=== PATIENT | female | born 1975 | race Caucasian/White ===

== ENCOUNTER 2024-11-11 12:42 | Emergency (ER) | payer MEDICAID, SELFPAY ==
--- OUTSIDE RECORDS SUMMARY | 2024-10-31 12:11 | XMS_ITS | Encounter Summary ---
Author Organization [facility] Address [address], [address] [place] [address] Care Team Providers Care Color Receiver Name Role Phone Charisse Hoffmann APRN - [employer] Primary Care Provi janet Reason for Visit * Treatment Plan and Therapy Plan (Routine) - Pending Review Specialty Diagnoses / Procedures Referred By Kacy porter Referred To Contact Diagnoses Multiple sclerosis (HCC) Louise Mcintosh DO [address] [place] [id number] Phone: tel: fax: Louise Mcintosh DO [address] [place] [address] Phone: tel: fax: Referral ID Status Reason Start Date Expiration Date V isits Requested Visits Authorized [id number] Pending Review 09/29/2024 09/29/2025 1 1 Encounter Details Date Type Department Care Team (Latest Contact Info) Description 10/31/2024 12:11 PM EDT - 10/31/2024 11:59 PM EDT Hospital Encounter [facility] Specialty Clinic ([facility]) [address] [place], [place] [id number] Multiple sclerosis (HCC) (Primary Dx) Discharge Disposition: Home or Self Care Social History Tobacco Use Types Packs/Day Years Used Date Smoking Tobacco: Former Cigarettes Passive Smoke Exposure: Never Smokeless Tobacco: Never Alcohol Use Standard Drinks/Week Comments Yes 0 (1 standard drink = 0.6 oz pur e alcohol) occ Comments Unknown Sex and Gender Information Value Date Recorded Sex Assigned at Not on file Legal Sex Female 1:28 PM EDT Gender Identity Not on file Sexual Orientation Not on file documented as of this encounter Last Filed Vital Signs Vital Sign Reading Time Taken Comments Blood Pressure 125/76 10/31/2024 5:00 PM EDT Pulse 96 10/31/2024 5:00 PM EDT Temperature 35.9 C (96.7 F) 10/31/2024 12:15 PM EDT Respiratory Rate 18 10/31/2024 12:15 PM EDT Oxygen Saturation - - Inhaled Oxygen Concentration - - Weight - - Height - - Body Mass Index - - documented in this encounter Discharge Instructions * Discharge Instructions* Shila Hernandez RN - 10/31/2024 12:59 PM EDT Outpatient Discharge Instructions for IV Therapy [address] [place] [address] You are advised to carry out the following instructions: Diet: As prescribed by your physician. Activity: As prescribed by your physician. Saline Lock: Notify your Physician if your previous IV site becomes,red,sore,swollen,painful, have drainage,or you develop a fever. Other: If you develop hives,rash,itching or trouble breathing, go to the nearest Emergency Room. These could be signs of a allergic reaction to the medication. Keep the IV site covered with a bandage. Keep it clean and dry until healed. Follow up appointment: ANY PROBLEMS OR CONCERNS NOTIFY YOUR PHYSICIAN OR GO TO THE NEAREST EMERGENCY ROOM. documented in this encounter Medications at Time of Discharge predniSONE (DELTASONE) 1 MG tablet Take by mouth daily Pt is unsure of dosage, states she is on a taper dose TRULANCE 3 MG TABS Take 1 tablet by mouth every morning 01/08/2024 Fingolimod HCl 0.5 MG CAPS Take 0.5 mg by mouth 11/03/2023 SEROQUEL 50 MG tablet Take 1 tablet by mouth 3 times daily vitamin B-12 (CYANOCOBALAMIN) 1000 MCG tablet Take 1 tablet by mouth every morning 07/14/2024 DULoxetine (CYMBALTA) 30 MG extended release capsule Take 1 capsule by mouth daily esomeprazole (NEXIUM) 40 MG delayed release capsule Take 1 capsule by mouth 2 times daily 06/02/2024 medroxyPROGESTERo ne (DEPO-PROVERA) 150 MG/ML injection Inject 1 mL into the muscle omeprazole (PRILOSEC) 40 MG delayed release capsule Take 1 capsule by mouth 2 times daily (before meals) 10/15/2023 documented as of this encounter Progress Notes * Shila Hernandez RN - 10/31/2024 5:15 PM EDT Patient stayed for an hour after infusion was complete and had no signs and symptoms of a reaction. documented in this encounter Plan of Treatment Upcoming Encounters Date Type Department Care Team (Late st Contact Info) Description 11/14/2024 10:00 AM EDT Hospital Encounter [facility] [place] [place] [place] [address] [place] [phone] 11/21/2024 3:45 PM EDT Office Visit [facility] Part of [address] [place] [id number] Yadiel Jimenes MD [address] [place] [address], [address] [place] [address] urine leaking, MS 11/29/2024 3:00 PM EDT Office Visit [facility] Neurology [address] [place] [address] Louise Mcintosh DO [address] [place] [address] 2-3 months MS documented as of this encounter Procedures Procedure Name Priority Date/Time Associated Diagnosis Comments CBC WITH AUTO DIFFERENTIAL Routine 10/31/2024 12:30 PM EDT COMPREHENSIVE METABOLIC PANEL Routine 10/31/2024 12:30 PM EDT documented in this encounter Results * (ABNORMAL) Comprehensive Metabolic Panel (10/31/2024 12:30 PM EDT) Sodium 139 136 - 145 mmol/L 10/31/2024 12:30 PM [facility] Potassium 4.2 3.7 - 5.3 mmol/L 10/31/2024 12:30 PM [facility] Chloride 109(H) 98 - 107 mmol/L 10/31/2024 12:30 PM [facility] CO2 17(L) 20 - 31 mmol/L 10/31/2024 12:30 PM [facility] Anion Gap 13 9 - 16 mmol/L 10/31/2024 12:30 PM [facility] Glucose 97 74 - 99 mg/dL 10/31/2024 12:30 PM [facility] BUN 11 6 - 20 mg/dL 10/31/2024 12:30 PM [facility] Creatinine 0.9 0.50 - 0.90 mg/dL 10/31/2024 12:30 PM [facility] Est, Glom Filt Rate 82 >60 mL/min/1.7 3m2 10/31/2024 12:30 PM [facility] Comment: These results are not intended for use in patients <18 years of age. eGFR results are calculated without a race factor using the 2020 CKD-EPI equation. Careful clinical correlation is recommended, particularly when comparing to results calculated using previous equations. The CKD-EPI equation is less accurate in patients with extremes of muscle mass, extra-renal metabolism of creatine, excessive creatine ingestion, or following therapy that affects renal tubular secretion. BUN/Creatinine Ratio 12 9 - 20 10/31/2024 12:30 PM [facility] Calcium 9.3 8.6 - 10.4 mg/dL 10/31/2024 12:30 PM [facility] Total Protein 6.7 6.6 - 8.7 g/dL 10/31/2024 12:30 PM [facility] Albumin 4.2 3.5 - 5.2 g/dL 10/31/2024 12:30 PM EDT [facility] Albumin/Globulin Ratio 1.7 1.0 - 2.5 10/31/2024 12:30 PM EDT [facility] Total Bilirubin 0.4 0.00 - 1.20 mg/dL 10/31/2024 12:30 PM EDT [facility] Alkaline Phosphatase 100 35 - 104 U/L 10/31/2024 12:30 PM EDT [facility] ALT 18 10 - 35 U/L 10/31/2024 12:30 PM EDT [facility] AST 15 10 - 35 U/L 10/31/2024 12:30 PM EDT [facility] 10/31/2024 12:3 0 PM EDT 10/31/2024 12:36 PM EDT us Charisse Hoffmann COVER OPERATOR - [employer] CHEMISTRY ORDERABLE S Final Result [facility] [address] [phone] * (ABNORMAL) CBC with Auto Differential (10/31/2024 12:30 PM EDT) WBC 7.9 3.5 - 11.3 k/uL 10/31/2024 12:30 PM EDT [facility] RBC 5.44(H) 3.95 - 5.11 m/uL 10/31/2024 12:30 PM EDT [facility] Hemoglobin 14.8 11.9 - 15.1 g/dL 10/31/2024 12:30 PM EDT [facility] Hematocrit 43.2 36.3 - 47.1 % 10/31/2024 12:30 PM EDT [facility] MCV 79.4(L) 82.6 - 102.9 fL 10/31/2024 12:30 PM EDT [facility] MCH 27.2 25.2 - 33.5 pg 10/31/2024 12:30 PM EDT [facility] MCHC 34.3 28.4 - 34.8 g/dL 10/31/2024 12:30 PM [facility] RDW 14.0 11.8 - 14.4 % 10/31/2024 12:30 PM [facility] Platelets 363 138 - 453 k/uL 10/31/2024 12:30 PM [facility] MPV 9.9 8.1 - 13.5 fL 10/31/2024 12:30 PM [facility] NRBC Automated 0.0 0.0 per 100 WBC 10/31/2024 12:30 PM [facility] Neutrophils % 70(H) 36 - 65 % 10/31/2024 12:30 PM [facility] Lymphocytes % 20(L) 24 - 43 % 10/31/2024 12:30 PM [facility] Monocytes % 8 3 - 12 % 10/31/2024 12:30 PM [facility] Eosinophils % 1 1 - 4 % 10/31/2024 12:30 PM [facility] Basophils % 0 0 - 2 % 10/31/2024 12:30 PM [facility] Immature Granulocytes % 1(H) 0 % 10/31/2024 12:30 PM [facility] Neutrophils Absolute 5.54 1.50 - 8.10 k/uL 10/31/2024 12:30 PM [facility] Lymphocytes Absolute 1.56 1.10 - 3.70 k/uL 10/31/2024 12:30 PM [facility] Monocytes Absolute 0.63 0.10 - 1.20 k/uL 10/31/2024 12:30 PM [facility] Eosinophils Absolute 0.05 0.00 - 0.44 k/uL 10/31/2024 12:30 PM [facility] Basophils Absolute 0.03 0.00 - 0.20 k/uL 10/31/2024 12:30 PM [facility] Immature Granulocytes Absolute 0.06 0.00 - 0.30 k/uL 10/31/2024 12:30 PM EDT [facility] 10/31/2024 12:3 0 PM EDT 10/31/2024 12:36 PM EDT us Charissera Chamberlainkoki COVER OPERATOR - [employer] HEMATOLOGY ORDERABL ES Final Result [facility] [address] [phone] documented in this encounter Visit Diagnoses Diagnosis Multiple sclerosis (HCC)- Primary Multiple sclerosis documented in this encounter Administered Medications Inactive Administered Medications - up to 3 most recent administrations Medication Order MAR Action Action Date Dose Rate Site 0.9 % sodium chloride infusion 5-250 mL/hr, IntraVENous, PRN, If patient receiving piggyback infusions and maintenance fluids are not ordered OR KVO fluids to protect IV site/ prevent frequent line interruptions/ long duration, Starting on Thu10/31/24 at 1224, For 18 hours, For piggyback infusion, administer at same rate as piggyback for a total of 25 mL. Enter 25 mL into dose field and piggyback rate into rate field of order. If piggyback is infusing at a rate less than 100 mL/hr, enter 25 mL into dose field and 100 mL/hr into rate field of order. For KVO fluids, enter rate of 20 mL/hr or less into rate field of order.Indications:Multiple sclerosis (HCC) New Bag 10/31/2024 12:43 PM EDT 50 mL/hr 50 mL/hr acetaminophen (TYLENOL) tablet 650 mg 650 mg, Oral, ONCE, 1 dose, On Thu10/31/24 at 1245, Maximum dose of acetaminophen is 4000 mg from all sources in 24 hours.Indications:Multiple sclerosis (HCC) Given 10/31/2024 12:38 PM EDT 650 mg diphenhydrAMINE (BENADRYL) injection 25 mg 25 mg, IntraVENous, ONCE, 1 dose, On Thu10/31/24 at 1245Indications:Multiple sclerosis (HCC) Given 10/31/2024 12:39 PM EDT 25 mg methylPREDNISolone sodium succ (SOLU-MEDROL) 125 mg in sterile water 2 mL injection 125 mg, IntraVENous, ONCE, On Thu10/31/24 at 1245, For 1 dose, Reconstitute 125 mg vial with 2 mL diluent.Indications:Multip le sclerosis (HCC) Given 10/31/2024 12:47 PM EDT 125 mg ocrelizumab (OCREVUS) 300 mg in sodium chloride 0.9 % 250 mL IVPB 300 mg, IntraVENous, Once, On Thu10/31/24 at 1245, For 1 dose, Use 0.2 or 0.22 micron in-line filter. Do not administer if patient has an open wound. For 300 mg dose, begin infusion at 30 mL/hr; increase by 30 mL/hr every 30 mins to a max rate of 180 mL/hr. Infusion duration is 2.5 hrs or longer. For 600 mg dose, begin infusion at 40 mL/hr; increase by 40 mL/hr every 30 mins to a max rate of 200 mL/hr. Infusion duration is 3.5 hrs or longer. If the patient has not had a serious reaction during any previous infusions, it may be infused over 2 hrs beginning at 100 mL/hr, after 15 mins increase to 200 mL/hr; at 30 mins increase to 250 mL/hr; at 60 mins increase to 300 mL/hr; after 60 mins continue at 300 mL/hr.Indications:Multiple sclerosis (HCC) Rate/Dose Change 10/31/2024 3:55 PM EDT 180 mL/hr Rate/Dose Change 10/31/2024 3:25 PM EDT 150 mL/ hr Rate/Dose Change 10/31/2024 2:55 PM EDT 120 mL/ hr documented in this encounter Care Teams Color Receiver Relationship Specialty Start Date End Date Charisse Hoffmann APRN - ZANE [address] [place] [address] PCP - General Pediatric Rehabilitation 07/21/24 documented as of this encounter
--- OUTSIDE RECORDS SUMMARY | 2024-11-07 16:15 | XMS_ITS | Encounter Summary ---
Author Organization [facility] tem Address [id number] [address] [place] [address] Care Team Providers Care Transit Department Clerk Name Role Phone Charisse Hoffmann APRN-ZANE Primary Care Provide r Reason for Visit * Reason Comments Nasal Congestion Cough Sore Throat Encounter Details Date Type Department Care Team (Late st Contact Info) Description 11/07/2024 4:15 PM EDT Office Visit [facility] [address] [place] [id number] Charisse Hoffmann APRN-CNP [address] [place], [place] [phone] Acute non-recurrent maxillary sinusitis (Primary Dx) Social History Tobacco Use Types Packs/Day Years Used Date Smoking Tobacco: Former Cigarettes Q uit: 12/14/2000 Smokeless Tobacco: Never Tobacco Cessation:Counseling Given: Not Answered Alcohol Use Standard Drinks/Week Comments Not Currently 0 (1 standard drink = 0.6 oz pur e alcohol) occassional AUDIT-C Answer Date Recorded Q1: How often do you have a drink containing alc ohol? 2-3 times a week 08/29/2019 Q2: How many drinks containi ng alcohol do you have on a typical day when you are drinking? 1 or 2 08/29/2019 Q3: How often do you have si x or more drinks on one occasion? Never 08/29/2019 Overall Financial Resource Strain (CARDIA) Answe r Date Recorded How hard is it for you to pa y for the very basics like food, housing, medical care, and heating? Patient declined 12/12/2023 PHQ-2 Answer Date Recorded Total Score 0 11/07/2024 PRAPARE - Transportation Answer Date Re corded In the past 12 months, has l ack of transportation kept you from medical appointments or from getting medications? No 11/19 In the past 12 months, has l ack of transportation kept you from meetings, work, or from getting things needed for daily living? No 12/12/2023 Housing Instability Answer Date Recorde d Are you worried or concerned that in the next two months you may not have stable housing that you own, rent or stay in as a part of a household? No 12/12/2023 Childcare Answer Date Recorded Childcare Unknown 09/16/2018 Employment Answer Date Recorded Employment Unknown 09/16/2018 Hunger Screening Answer Date Recorded Within the past 12 months we worried whether our food would run out before we got money to buy more. Never True 11/07/2024 Within the past 12 months th e food we bought just didn't last and we didn't have money to get more. 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 Not on file Not on file Not on file documented as of this encounter Last Filed Vital Signs Vital Sign Reading Time Taken Comments Blood Pressure 92/62 11/07/2024 4:03 PM EDT Pulse 101 11/07/2024 4:03 PM EDT Temperature 37.1 C (98.8 F) 11/07/2024 4:03 PM EDT Respiratory Rate 18 11/07/2024 4:03 PM EDT Oxygen Saturation 97% 11/07/2024 4:03 PM EDT Inhaled Oxygen Concentration - - Weight 84.4 kg (186 lb) 11/07/2024 4:03 PM EDT Height - - Body Mass Index 30.25 06/22/2024 9:52 AM EST documented in this encounter Patient Instructions * Attachments The following attachments cannot be sent through Care Everywhere. * Sinusitis in adults (Hungarian) documented in this encounter Progress Notes * Charisse Hoffmann, KR[employer]-PAROLE AGENT - 11/07/2024 4:15 PM EDT Images from the original note were not included. [address] [facility] [id number] SUBJECTIVE: Patient ID: Piper Juarez is a 49 y.o. female. Patient presents to the office for complaints of congestion, sinus pressure, cough for the past week. OTC medication is not helping. Nasal Congestion Associated symptoms include congestion, coughing, sinus pressure and a sore throat. Pertinent negatives include no ear pain, neck pain or shortness of breath. Cough Associated symptoms include postnasal drip and a sore throat. Pertinent negatives include no chest pain, ear pain, fever, rash or shortness of breath. Sore Throat Associated symptoms include congestion and coughing. Pertinent negatives include no abdominal pain,diarrhea, ear pain, neck pain, shortness of breath or vomiting. The following portions of the patient's history were reviewed and updated as appropriate: allergies, current medications, past family history, past medical history, past social history, past surgicalhistory and problem list. REVIEW OF SYSTEMS: Review of Systems Constitutional: Negative for fatigue, fever and unexpected weight change. HENT: Positive for congestion, postnasal drip, sinus pressure, sinus pain and sore throat. Negativefor ear pain. Eyes: Negative for photophobia, pain, discharge and visual disturbance. Respiratory: Positive for cough. Negative for shortness of breath. Cardiovascular: Negative for chest pain, palpitations and leg swelling. Gastrointestinal: Negative for abdominal pain, diarrhea, nausea and vomiting. Endocrine: Negative for polydipsia, polyphagia and polyuria. Genitourinary: Negative for difficulty urinating, frequency, hematuria and urgency. Musculoskeletal: Negative for arthralgias, gait problem, joint swelling and neck pain. Skin: Negative for pallor and rash. Neurological: Negative for dizziness, weakness, light-headedness and numbness. Psychiatric/Behavioral: Negative for sleep disturbance. The patient is not nervous/anxious. PHYSICAL EXAMINATION: Vitals: 11/07/24 1603 BP: 92/62 Pulse: 101 Resp: 18 Temp: 37.1 ??C (98.8 ??F) TempSrc: Tympanic SpO2: 97% Weight: 84.4 kg (186 lb) Physical Exam Constitutional: Appearance: She is well-developed. HENT: Head: Normocephalic and atraumatic. Right Ear: Tympanic membrane, ear canal and external ear normal. Left Ear: Tympanic membrane, ear canal and external ear normal. Nose: Congestion present. Right Sinus: Maxillary sinus tenderness present. Left Sinus: Maxillary sinus tenderness present. Mouth/Throat: Pharynx: Posterior oropharyngeal erythema present. Eyes: Conjunctiva/sclera: Conjunctivae normal. Pupils: Pupils are equal, round, and reactive to light. Cardiovascular: Rate and Rhythm: Normal rate and regular rhythm. Heart sounds: Normal heart sounds. Pulmonary: Effort: Pulmonary effort is normal. Breath sounds: Normal breath sounds. Musculoskeletal: Cervical back: Normal range of motion. Skin: General: Skin is warm and dry. Neurological: Mental Status: She is alert and oriented to person, place, and time. Psychiatric: Mood and Affect: Mood normal. ASSESSMENT/PLAN: Piper was seen today for nasal congestion, cough and sore throat. Diagnoses and all orders for this visit: Acute non-recurrent maxillary sinusitis Other orders - cefDINIR (OMNICEF) 300 mg capsule; Take 1 capsule (300 mg total) by mouth in the morning and 1 capsule (300 mg total) before bedtime. Do all this for 10 days. Follow-up: Cefdinir 300mg bid for ten days Follow up with routine appointment or as needed Patient noted to have elevated BMI and the following intervention(s) were applied: encouragement toexercise. ALONDRA Christie 11/07/24 1619 documented in this encounter Plan of Treatment Not on file documented as of this encounter Visit Diagnoses Diagnosis Acute non-recurrent maxillary sinusitis- Primary documented in this encounter Additional Health Concerns Assessment Noted Time PHQ-9 Depression Total Score: 0 11/08/19 4:07 PM EDT A Body Mass Index follow-up plan has been documented for the patient 11/07/2024 4:19 PM EDT documented as of this encounter Care Teams Transit Department Clerk Relationship Specialty Start Date End Date Charisse Hoffmann APRN-ZANE [address] [place] [address] PCP - General Family Medicine 11/19/17 documented as of this encounter
[2024-11-11 12:45] VITALS: BP 124/97; PULSE 82; O2SAT 97; BMI 29.9
[2024-11-11 12:49] VITALS: O2SAT 97
[2024-11-11 12:50] VITALS: TEMP 36.9
--- NOTE | 2024-11-11 12:54 | XR_ITS ---
[facility] [place] [id number] Patient Name: KENNY MILLS MRN: [id number] date: 1975 Sex: F Assigned Patient Location: ED.MAIN Current Patient Location: ED.MAIN Accession/Order Number: [id number] Exam Date: 11/11/2024 13:54 Report Date: 11/11/2024 13:54 At the request of: DANIS TOUSSAINT MD Procedure: XR chest 1V Single view chest: CLINICAL HISTORY: cough COMPARISON: Chest 02/19/2018 FINDINGS: The heart is normal in size. The lungs are clear. The pulmonary vasculature is normal. Mediastinum and hilar regions are unremarkable. No pleural effusions are seen. Visualized bones are intact. XR/XR chest 1V IMPRESSION: NEGATIVE CHEST. Impression dictated by: Avel Curran Jr., D.O. 11/11/2024 1:54 PM Dictation Location: [place] [address] Electronically authenticated by: [id number] Y Date: 11/11/2024 13:54
--- OUTSIDE RECORDS SUMMARY | 2024-11-11 12:58 | XMS_ITS | Encounter Summary ---
Author Organization [facility] Address [address] [place] [address] Care Team Providers Care Hammer Repairer Name Role Phone Charisse Hoffmann CNP Primary Care Provider [phone] Jaswant Margaret Lincoln OPERATER Unavailable [phone] Source Comments In the event this information is protected by the Federal Confidentiality of Alcohol and Drug AbusePatient Records regulations: The Federal rules restrict any use of the information to criminally investigate or prosecute any alcohol or drug abuse patient.[facility] Encounter Details Date Type Department Care Team (Late st Contact Info) Description 09/28/2020 Patient Msg Neurology [address] [place] [address] Provider, [facility] APPOINTMENT DATE CHANGE WITH MARIANN CUEVA Social History Tobacco Use Types Packs/Day Years Used Date Smoking Tobacco: Former Cigarettes Q uit: 04/20/2009 Smokeless Tobacco: Never Area Deprivation Index Answer Date Jeffy rded National Score (1-100), lower number is lower ri sk Not on file 03/29/2020 State Score (1-10), lower number is lower risk N ot on file 03/29/2020 Data from: https://www.neighborhoodatlas.medicine.[facility].edu/. Last address used for calculation Not on file 03/29/2020 Comments No Sex and Gender Information Value Date Recorded Sex Assigned at Not on file Legal Sex Female 11:01 AM EST Gender Identity Not on file Sexual Orientation Not on file documented as of this encounter Plan of Treatment Not on file documented as of this encounter Visit Diagnoses Not on filedocumented in this encounter Care Teams Hammer Repairer Relationship Specialty Start Date End Date Charisse Hoffmann CNP PCP - General Family Medicine 05/04/19 Margaret Michaud CNP Neurology 05/04/19 documented as of this encounter
--- OUTSIDE RECORDS SUMMARY | 2024-11-11 12:58 | XMS_ITS | Encounter Summary ---
Author Organization [employer] Address [id number] [address] [place] [address] Care Team Providers Care Pay Agent Name Role Phone Charisse Hoffmann HAND ICER-MEDICAL EQUIPMENT REPAIRER Primary Care Provide r Reason for Visit * Reason Onset Date Comments Med Refill 10/04/2018 Encounter Details Date Type Department Care Team (Late st Contact Info) Description 10/04/2018 Refill [facility]rology [address] [facility] [address] [address] [place] [address] Jennifer Paredes, BERNARDO Social History Tobacco Use Types Packs/Day Years Used Date Smoking Tobacco: Former Cigarettes Q uit: 12/14/2000 Smokeless Tobacco: Never Alcohol Use Standard Drinks/Week Comments No 0 (1 standard drink = 0.6 oz pur e alcohol) PHQ-2 Answer Date Recorded PHQ-2 Score 0 04/22/2018 Childcare Answer Date Recorded Childcare Unknown 09/16/2018 Employment Answer Date Recorded Employment Unknown 09/16/2018 Comments No Sex and Gender Information Value Date Recorded Sex Assigned at Not on file Legal Sex Female 11:30 AM EDT Gender Identity Not on file Sexual Orientation Not on file 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 Not on file Not on file documented as of this encounter Plan of Treatment Not on file documented as of this encounter Visit Diagnoses Not on filedocumented in this encounter Additional Health Concerns Infection Onset Date Last Indicated Resolved Time COVID-19 Rule-Out 05/05/2020 04/27/2020 05/05/2020 9:47 AM EST Assessment Noted Time PHQ-9 Depression Total Score: 0 10/05/19 2:00 PM EDT documented as of this encounter Care Teams Pay Agent Relationship Specialty Start Date End Date Charisse Hoffmann APRN-MEDICAL EQUIPMENT REPAIRER [address] [place] [address] PCP - General Family Medicine 11/19/17 documented as of this encounter
--- OUTSIDE RECORDS SUMMARY | 2024-11-11 12:58 | XMS_ITS | Encounter Summary ---
Author Organization [employer] Address [id number] [address] [place] [address] Care Team Providers Care Electrical Instrument Repairer Name Role Phone Charisse Hoffmann HOUSING DIRECTOR-GREEN BUILDING ARCHITECT Primary Care Provide r Reason for Visit * Reason Comments Med Refill Encounter Details Date Type Department Care Team (Late st Contact Info) Description 08/15/2021 Refill [facility] Family Medicine [address] [place] [address] [place] [address] Fatoumata Persaud APRN-CNP [address] [place], [place] [id number] Bladder leak Social History Tobacco Use Types Packs/Day Years Used Date Smoking Tobacco: Former Cigarettes Q uit: 12/14/2000 Smokeless Tobacco: Never Alcohol Use Standard Drinks/Week Comments Not Currently [...] more drinks on one occasion? 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 No / Unsure 07/17/2021 9:40 AM EDT documented as of this encounter Plan of Treatment Not on file documented as of this encounter Visit Diagnoses Diagnosis Bladder leak Unspecified urinary incontinence documented in this encounter Additional Health Concerns Assessment Noted Time PHQ-9 Depression Total Score: 0 06/20/19 22 8:50 AM EST A Body Mass Index follow-up plan has been documented for the patient 04/30/2021 1:47 PM EST documented as of this encounter Care Teams Electrical Instrument Repairer Relationship Specialty Start Date End Date Charisse Hoffmann APRN-GREEN BUILDING ARCHITECT [address] [place] [address] PCP - General Family Medicine 11/19/17 documented as of this encounter
--- OUTSIDE RECORDS SUMMARY | 2024-11-11 12:58 | XMS_ITS | Encounter Summary ---
Author Organization [employer] Address [id number] [address] [place] [address] Care Team Providers Care Binder Selector Name Role Phone Charisse Hoffmann SALESPERSON CORSETS-COMMUNICATIONS EDITOR Primary Care Provide r Encounter Details Date Type Department Care Team (Late st Contact Info) Description 01/19/2023 Telephone [facility] Pulmonary/Sleep Medicine [address] [facility] [address] [place] [address] Ruth Adams MD [address] [place] [address] Social History Tobacco Use Types Packs/Day Years [...] 08/29/2019 PHQ-2 Answer Date Recorded Total Score 9 08/25/2022 Childcare Answer Date Recorded Childcare Unknown 09/16/2018 [...] 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 I let her know that the appointment we have now is when she is due back, and I would check and see if a sooner appt is necessary. Patient states that she is sleeping until 12-1pm everyday. When she awakes she is still tired and feels like she could sleep even longer. She has 2 sleep studies and a follow up scheduled in March. Last seen in our office on 12/30/2022. * Telephone Encounter - Ruth Adams MD - 01/19/2023 1:14 PM EDT I need the results of her sleep study to be able to help her further. She needs the PSG / MSLT scheduled at her habitual sleep and wake time. She needs to keep a sleep diary for two weeks leading up to her testing, as well as UDS, so could have the study as early as two weeks from now if there werecancellations. Would also offer her other labs. * Telephone Encounter - Elida Gomez - 01/19/2023 1:14 PM EDT Called pt to see if wants to try another lab for possible sooner PSG/MSLT appt. Also added to cancel list for PSG /MSLT scheduled at [facility]. documented in this encounter Plan of Treatment Not on file documented as of this encounter Visit Diagnoses Not on filedocumented in this encounter Additional Health Concerns Assessment Noted Time PHQ-9 Depression Total Score: 9 08/26/19 23 1:21 PM EDT A Body Mass Index follow-up plan has been documented for the patient 12/09/2022 1:28 PM EDT documented as of this encounter Care Teams Binder Selector Relationship Specialty Start Date End Date Charisse Hoffmann APRN-ZANE [address] [place] [address] PCP - General Family Medicine 11/19/17 documented as of this encounter
--- OUTSIDE RECORDS SUMMARY | 2024-11-11 12:58 | XMS_ITS | Clinical Summary ---
Author Organization [facility] Address [address] [place], [place] [address] Care Team Providers Care Wheel Braider Name Role Phone Charisse Hoffmann CNP Primary Care Provider [phone]- [phone] Margaret Michaud CANINE SERVICE TEACHER Unavailable [phone] Allergies No known active allergies Medications DULoxetine (CYMBALTA) 30 mg capsule Take 30 mg by mouth once daily. 019 Active QUEtiapine (SEROQUEL) 50 mg tablet Take 50 mg by mouth three times daily. 020 Active cyanocobalami n (VITAMIN B-12) 1,000 mcg tab 023 Active medroxyPROGES TERone (DEPO-PROVERA ) 150 mg/mL injection Inject 150 mg intramuscularly every 3 months. Active esomeprazole (NEXIUM) 40 mg capsule TAKE 1 CAPSULE BY MOUTH 2 TIMES A DAY 180 capsule 025 Active fingolimod (GILENYA) 0.5 mg capsule TAKE ONE CAPSULE BY MOUTH EVERY AFTERNOON 30 capsule 025 Active fingolimod (GILENYA) 0.5 mg capsule Take 1 capsule by mouth every afternoon. 30 capsule 11 024 2024 Discontinued iv contrast (will be provided with radiology test) MRI Brain Inject, intravenously, once for 1 dose.No IV access, insert saline lock prior to beginning of sedation, infusion, injection of imaging exam.Discontinue saline lock post exam. If Pt. has a central line or IVAD, may access for administration according to line specific nursing protocol.Once exam is complete flush line and de-access according to line specific nursing protocol in the MR contrast administration guidelines link 1 each 025 2024 Active Problems Problem Noted Date Diagnosed Date Multiple sclerosis 10/08/2023 Encounters Date Type Department Care Team Description 10/14/2024 Telephone [facility] [address] [id number] Lisa Angel PA-C Appointment (spoke to patient she is going to call back to schedule her mri and follow up) 10/12/2024 Refill [facility] [address] [id number] Rafael Mejía MD Refill Request 08/29/2024 Refill Gastroenterology [address] [id number] Maya Tucker APRN.CANINE SERVICE TEACHER Refill Request 08/26/2024 Travel from Last 3 Months Social History Tobacco Use Types Packs/Day Years Used Date Smoking Tobacco: Former Cigarettes Q uit: 04/20/2009 Smokeless Tobacco: Never Tobacco Cessation:Counseling Given: Not Answered PHQ-2 Answer Date Recorded PHQ-2 score 2 05/23/2024 Area Deprivation Index Answer Date Jeffy rded National Score (1-100), lower number is lower ri sk 92 11/27/2022 State Score (1-10), lower number is lower risk 9 11/27/2022 Data from: https://www.neighborhoodatlas.medicine.[facility]/. Last address used for calculation [address] [place] [address] 11/27/2022 Comments No Sex and Gender Information Value Date Recorded Sex Assigned at Not on file Legal Sex Female 11:01 AM EST Gender Identity Not on file Sexual Orientation Not on file Last Filed Vital Signs Vital Sign Reading Time Taken Comments Blood Pressure 121/75 10/06/2023 1:29 PM EDT Pulse 76 10/06/2023 1:29 PM EDT Temperature - - Respiratory Rate 20 05/10/2019 1:39 PM EST Oxygen Saturation - - Inhaled Oxygen Concentration - - Weight 79.4 kg (175 lb) 10/06/2023 1:29 PM EDT Height 170.7 cm (5' 7.2 ) 10/06/2023 1:29 PM EDT Body Mass Index 27.25 10/06/2023 1:29 PM EDT Plan of Treatment Health Maintenance Due Date Last Done Comments Anxiety Screening 1993 Depression Screening 1993 HIV Screening 1993 Hepatitis C Screening 1993 Hepatitis B Vaccine (1 of 3 - 19+ 3-dose series) 1994 02/29/2004, 01/07/2002, 08/05/1999 Cervical Cancer Screening 1996 CT Colonography 2020 Cologuard (FIT-DNA) 2020 Fecal Occult Blood 2020 Sigmoidoscopy 2020 Mammogram Screening 12/16/2023 12/15/2022, 12/15/2022, 12/12/2021, Additional history exists Colonoscopy 10/14/2024 10/15/2023 Colorectal Cancer Screening 10/14/2024 Influenza Vaccine (#1) 2024 01/16/2022, 2018 Diabetes Screening 10/07/2026 10/08/2023, 0 08/25/2022, 06/25/2022, Additional history exists Lipid Screening 10/07/2028 10/08/2023, 09/19, 06/19/2021, Additional history exists DTaP,Tdap,Td Vaccine (6 - Td or Tdap) 10/23/2031 10/22/2021, 01/06/2014, 07/29/2005, Additional history exists Procedures Procedure Name Priority Date/Time Associated Diagnosis Comments COMPREHENSIVE METABOLIC PANEL Routine 06/25/2022 4:02 PM EST Multiple sclerosis (HCC) from Last 3 Months or Most Recently Relevant to Health Maintenance Results * (ABNORMAL) COMP METABOLIC PANEL (06/25/2022 4:02 PM EST) Protein, Total 6.9 6.3 - 8.0 g/dL 06/25/2022 7:52 PM EST [facility] Albumin 4.4 3.9 - 4.9 g/dL 06/25/2022 7:52 PM EST [facility] Calcium, Total 9.6 8.5 - 10.2 mg/dL 06/25/2022 7:52 PM [facility] Bilirubin, Total 0.4 0.2 - 1.3 mg/dL 06/25/2022 7:52 PM [facility] Alkaline Phosphatase 95 34 - 123 U/L 06/25/2022 7:52 PM [facility] AST 17 13 - 35 U/L 06/25/2022 7:52 PM [facility] ALT 23 7 - 38 U/L 06/25/2022 7:52 PM [facility] Glucose 85 74 - 99 mg/dL 06/25/2022 7:52 PM [facility] Comment: The [place] Diabetes Association (ADA) provides guidance for cutoff values for fasting glucose and random glucose. The ADA defines fasting as no caloric intake for at least 8 hours. Fasting plasma glucose results between 100 to 125 mg/dL indicate increased risk for diabetes (prediabetes). Fasting plasma glucose results greater than or equal to 126 mg/dL meet the criteria for diagnosis of diabetes. In the absence of unequivocal hyperglycemia, results should be confirmed by repeat testing. In a patient with classic symptoms of hyperglycemia or hyperglycemic crisis, random plasma glucose results greater than or equal to 200 mg/dL meet the criteria for diagnosis of diabetes. Reference: Standards of Medical Care in Diabetes 2016, [place] Diabetes Association. Diabetes Care. 2016.39(Suppl 1). BUN 11 7 - 21 mg/dL 06/25/2022 7:52 PM [facility] Creatinine 0.79 0.58 - 0.96 mg/dL 06/25/2022 7:52 PM [facility] Sodium 139 136 - 144 mmol/L 06/25/2022 7:52 PM [facility] Potassium 4.6 3.7 - 5.1 mmol/L 06/25/2022 7:52 PM [facility] Chloride 105 97 - 105 mmol/L 06/25/2022 7:52 PM [facility] CO2 19(L) 22 - 30 mmol/L 06/25/2022 7:52 PM [facility] Anion Gap 15 9 - 18 mmol/L 06/25/2022 7:52 PM [facility] Estimated Glomerular Filtration Rate 93 >=60 mL/min/1.7 3m 06/25/2022 7:52 PM EST [facility] Comment:Estimated Glomerular Filtration Rate (eGFR) is calculated using the 2020 CKD-EPI creatinine equation. This equation utilizes serum creatinine, sex, and age as parameters. The creatinine assay has traceable calibration to isotope dilution- mass spectrometry. Refer to KDIGO guidelines for clinical interpretation. In patients with unstable renal function, e.g. those with acute kidney injury, the eGFR may not accurately reflect actual GFR. Blood BLOOD SPECIMEN / Unknown Venipuncture / Unknown 06/25/2022 4:02 PM EST 06/25/2022 6:09 PM EST us Lisa Angel PA-C LABORATORY Final Result [facility] [address] [phone], from Last 3 Months or Most Recently Relevant to Health Maintenance Insurance [employer] [place] Care Teams Wheel Braider Relationship Specialty Start Date End Date Charisse Hoffmann CNP PCP - General Family Medicine 05/04/19 Margaret Michaud CNP Neurology 05/04/19
--- OUTSIDE RECORDS SUMMARY | 2024-11-11 12:58 | XMS_ITS | Encounter Summary ---
Author Organization [facility] Address [address] [place] [address] Care Team Providers Care Network Intelligence Analyst Name Role Phone Shun Charisse NETWORK INTELLIGENCE ANALYST Primary Care Provider [phone] JaswantMargaret Lincoln NETWORK INTELLIGENCE ANALYST Unavailable [phone] Source Comments In the event this information is protected by the Federal Confidentiality of Alcohol and Drug AbusePatient Records regulations: The Federal rules restrict any use of the information to criminally investigate or prosecute any alcohol or drug abuse patient.[facility] Encounter Details Date Type Department Care Team (Late st Contact Info) Description 01/21/2024 Patient Msg Gastroenterology [address] [address] Maya Tucker APRN.NETWORK INTELLIGENCE ANALYST [address] [place] [address] virtual visit follow up Social History Tobacco Use Types Packs/Day Years Used Date Smoking Tobacco: Former Cigarettes Q uit: 04/20/2009 Smokeless Tobacco: Never PHQ-2 Answer Date Recorded PHQ-2 score 0 10/05/2023 Area Deprivation Index Answer Date Jeffy rded National Score (1-100), lower number is lower ri sk 92 11/27/2022 State Score (1-10), lower number is lower risk 9 11/27/2022 Data from: https://www.neighborhoodatlas.medicine.[facility].edu/. Last address used for calculation [address] [facility] 11/27/2022 Comments No Sex and Gender Information Value Date Recorded Sex Assigned at Not on file Legal Sex Female 11:01 AM EST Gender Identity Not on file Sexual Orientation Not on file documented as of this encounter Plan of Treatment Not on file documented as of this encounter Visit Diagnoses Not on filedocumented in this encounter Care Teams Network Intelligence Analyst Relationship Specialty Start Date End Date Charisse Hoffmann CNP PCP - General Family Medicine 05/04/19 Margaret Michaud CNP Neurology 05/04/19 documented as of this encounter
--- OUTSIDE RECORDS SUMMARY | 2024-11-11 12:58 | XMS_ITS | Encounter Summary ---
Author Organization [employer] Address [id number] [address] [place] [address] Care Team Providers Care Sales Floor Manager Name Role Phone Charisse Hoffmann Primary Care Provide r Encounter Details Date Type Department Care Team (Late st Contact Info) Description 06/01/2020 Telephone [facility] [address] [place] [address] Charisse Hoffmann APRN-CNP [address] [place], [place] [id number] Social History Tobacco Use Types Packs/Day Years [...] 08/29/2019 PHQ-2 Answer Date Recorded Total Score 11 03/01/2020 Childcare Answer Date Recorded Childcare Unknown 09/16/2018 [...] 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 No / Unsure 05/25/2020 6:02 PM EST documented as of this encounter Miscellaneous Notes * Telephone Encounter - Michelle Serrano - 06/01/2020 1:13 PM EST Patient called, she called the pharmacy to see if she can get the covid shot. She is concerned because her daughter just found out that she has Covid. The pharmacy told her to call her PCP to get a letter of exception because she has MS. She wants toknow if you will write that letter * Telephone Encounter - ALONDRA Christie - 06/01/2020 1:13 PM EST That's fine documented in this encounter Plan of Treatment Not on file documented as of this encounter Visit Diagnoses Not on filedocumented in this encounter Additional Health Concerns Assessment Noted Time PHQ-9 Depression Total Score: 020 2:00 PM EST A Body Mass Index follow-up plan has been documented for the patient 03/01/2020 3:26 PM EST documented as of this encounter Care Teams Sales Floor Manager Relationship Specialty Start Date End Date Charisse Hoffmann APRN-CNP [address] [place] [address] PCP - General Family Medicine 11/19/17 documented as of this encounter
--- OUTSIDE RECORDS SUMMARY | 2024-11-11 12:58 | XMS_ITS | Encounter Summary ---
Author Organization [employer] Address [id number] [address] [place] [address] Care Team Providers Care Knit Goods Cutter Hand Name Role Phone Charisse Hoffmann Primary Care Provide r Encounter Details Date Type Department Care Team (Late st Contact Info) Description 12/22/2023 Orders Only [facility] [address] [place] [address] Charisse Hoffmann APRN-CNP [address] [place], [place] [phone] Abnormal mammogram of right breast (Primary Dx) Social History Tobacco Use Types [...] 12/12/2023 PHQ-2 Answer Date Recorded Total Score 9 08/25/2022 PRAPARE - Transportation Answer Date Re corded [...] got money to buy more. Never True 12/18/2023 Within the past 12 months th e food we bought just didn't last and we didn't have money to get more. 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 on file Not on file documented as of this encounter Plan of Treatment Scheduled Orders Name Type Priority Associated Diagnoses Orde r Schedule Mammography diagnostic bilateral with CAD Imaging Routine Abnormal mammogram of right breast Expected: 12/22/2023, Expires: 12/21/2024 documented as of this encounter Visit Diagnoses Diagnosis Abnormal mammogram of right breast- Primary documented in this encounter Additional Health Concerns Assessment Noted Time PHQ-9 Depression Total Score: 9 08/26/19 23 1:21 PM EDT A Body Mass Index follow-up plan has been documented for the patient 12/14/2023 9:25 AM EDT documented as of this encounter Care Teams Knit Goods Cutter Hand Relationship Specialty Start Date End Date Charisse Hoffmann APRN-[employer]ER [address] [place] [place] [address] PCP - General Family Medicine 11/19/17 documented as of this encounter
--- OUTSIDE RECORDS SUMMARY | 2024-11-11 12:58 | XMS_ITS | Encounter Summary ---
Author Organization Address [address] [place] [address] Care Team Providers Care Pillowcase Maker Name Role Phone Charisse Hoffmann CNP Primary Care Provider [phone] Jaswant Margaret Lincoln TUBE HANDLER Unavailable [phone] Source Comments In the event this information is protected by the Federal Confidentiality of Alcohol and Drug AbusePatient Records regulations: The Federal rules restrict any use of the information to criminally investigate or prosecute any alcohol or drug abuse patient. Encounter Details Date Type Department Care Team (Late st Contact Info) Description 05/08/2024 Patient Msg Urology [address] [place] [address] Nohelia Burns MD [address] [place] [address] Appointment Request Social History Tobacco Use Types Packs/Day Years Used Date Smoking Tobacco: Former Cigarettes Q uit: 04/20/2009 Smokeless Tobacco: Never PHQ-2 Answer Date Recorded PHQ-2 score 0 04/07/2024 Area Deprivation Index Answer Date Jeffy rded National Score (1-100), lower number is lower ri sk 92 11/27/2022 State Score (1-10), lower number is lower risk 9 11/27/2022 Data from: https://www.neighborhoodatlas.medicine.[facility].edu/. Last address used for calculation [address] [place] [address] 11/27/2022 Comments No Sex and Gender Information Value Date Recorded Sex Assigned at Not on file Legal Sex Female 11:01 AM EST Gender Identity Not on file Sexual Orientation Not on file documented as of this encounter Plan of Treatment Not on file documented as of this encounter Visit Diagnoses Not on filedocumented in this encounter Care Teams Pillowcase Maker Relationship Specialty Start Date End Date Charisse Hoffmann CNP PCP - General Family Medicine 05/04/19 Margaret Michaud CNP Neurology 05/04/19 documented as of this encounter
--- OUTSIDE RECORDS SUMMARY | 2024-11-11 12:58 | XMS_ITS | Encounter Summary ---
Author Organization [employer] [facility] Address [id number] [address] [place] [address] Care Team Providers Care Lead Trainer Name Role Phone Charisse Hoffmann SCIENCE TEACHER-BANKING AND FINANCE INSTRUCTOR Primary Care Provide r Encounter Details Date Type Department Care Team (Late st Contact Info) Description 07/23/2020 Telephone [facility] [address] [facility] [address] [place] [address] Mile Martinez, GRANT Social History Tobacco Use Types Packs/Day Years [...] 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 Patient states the medications prescribed were not helping her so she stopped them. She hasn't beentaking anything for symptoms for about 1 to 2 months. She states she is having nausea and and some heartburn symptoms. Patient states she is watching herdiet and following guidelines without relief. Please advise documented in this encounter Plan of Treatment Not on file documented as of this encounter Visit Diagnoses Not on filedocumented in this encounter Additional Health Concerns Assessment Noted Time PHQ-9 Depression Total Score: 11 020 2:00 PM EST A Body Mass Index follow-up plan has been documented for the patient 03/01/2020 3:26 PM EST documented as of this encounter Care Teams Lead Trainer Relationship Specialty Start Date End Date Charisse Hoffmann APRN-ZANE [address] [place] [address] PCP - General Family Medicine 11/19/17 documented as of this encounter
--- OUTSIDE RECORDS SUMMARY | 2024-11-11 12:58 | XMS_ITS | Encounter Summary ---
Author Organization [employer] Address [id number] [address] 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 No / Unsure 10/02/2021 2:43 PM EDT documented as of this encounter Plan of Treatment Not on file documented as of this encounter Visit Diagnoses Diagnosis Stress incontinence of urine documented in this encounter Additional Health Concerns Assessment Noted Time PHQ-9 Depression Total Score: 0 06/20/19 22 8:50 AM EST A Body Mass Index follow-up plan has been documented for the patient 10/02/2021 3:22 PM EDT documented as of this encounter Care Teams Invasive Physician Relationship Specialty Start Date End Date Charisse Hoffmann APRN-FASHION INTERN [address] [place] [address] PCP - General Family Medicine 11/19/17 documented as of this encounter
--- OUTSIDE RECORDS SUMMARY | 2024-11-11 12:58 | XMS_ITS | Encounter Summary ---
Author Organization [email or web address] Address [id number] [address] 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 Not on file Not on file documented as of this encounter Plan of Treatment Not on file documented as of this encounter Procedures Procedure Name Priority Date/Time Associated Diagnosis Comments AMB REFERRAL TO ORTHOPEDIC SURGERY Routine 12/29/2023 Acute pain of left knee documented in this encounter Results * Ambulatory referral to Orthopedic Surgery (12/29/2023) us Charisse Hoffmann ENDODONTIC ASSISTANT-PAPER SALES REPRESENTATIVE OUTPATIENT REFERRAL O RDERABLES Final Result MANUALLY TRANSCRIBED RESULTS documented in this encounter Visit Diagnoses Diagnosis Acute pain of left knee documented in this encounter Additional Health Concerns Assessment Noted Time PHQ-9 Depression Total Score: 9 08/26/19 23 1:21 PM EDT A Body Mass Index follow-up plan has been documented for the patient 12/14/2023 9:25 AM EDT documented as of this encounter Care Teams Loading Machine Operator Relationship Specialty Start Date End Date Charisse Hoffmann APRN-PAPER SALES REPRESENTATIVE [address] [place] [address] PCP - General Family Medicine 11/19/17 documented as of this encounter
--- OUTSIDE RECORDS SUMMARY | 2024-11-11 12:58 | XMS_ITS | Encounter Summary ---
Author Organization [facility] Address [address] [place] [address] Care Team Providers Care Piano Case And Bench Assembler Name Role Phone Charisse Hoffmann CNP Primary Care Provider +1- [phone] Jaswant Margaret Lincoln AQUATIC PERFORMER Unavailable [phone] Source Comments In the event this information is protected by the Federal Confidentiality of Alcohol and Drug AbusePatient Records regulations: The Federal rules restrict any use of the information to criminally investigate or prosecute any alcohol or drug abuse patient.[facility] Encounter Details Date Type Department Care Team (Late st Contact Info) Description 05/04/2021 Patient [facility] [address] [address] Provider, Ccf Please call to re-schedule Social History Tobacco Use Types Packs/Day Years Used Date Smoking Tobacco: Former Cigarettes Q uit: 04/20/2009 Smokeless Tobacco: Never Area Deprivation Index Answer Date Jeffy rded National Score (1-100), lower number is lower ri sk Not on file 03/29/2020 State Score (1-10), lower number is lower risk N ot on file 03/29/2020 Data from: https://www.neighborhoodatlas.medicine.[place].edu/. Last address used for calculation Not on file 03/29/2020 Comments No Sex and Gender Information Value Date Recorded Sex Assigned at Not on file Legal Sex Female 11:01 AM EST Gender Identity Not on file Sexual Orientation Not on file COVID-19 Exposure Response Date Recorded In the last month, have you been in contact with someone who was confirmed or suspected to have Coronavirus / COVID-19? No / Unsure 04/09/2021 3:24 PM EST documented as of this encounter Plan of Treatment Not on file documented as of this encounter Visit Diagnoses Not on filedocumented in this encounter Care Teams Piano Case And Bench Assembler Relationship Specialty Start Date End Date Charisse Hoffmann CNP PCP - General Family Medicine 05/04/19 Margaret Michaud CNP Neurology 05/04/19 documented as of this encounter
--- OUTSIDE RECORDS SUMMARY | 2024-11-11 12:58 | XMS_ITS | Encounter Summary ---
Author Organization [facility] Address [facility] [place] [address] Care Team Providers Care Emt Intermediate Name Role Phone Charisse Hoffmann CNP Primary Care Provider +1- [phone] JaswantMargaret Lincoln LEAD RADIATION THERAPIST Unavailable Source Comments In the event this information is protected by the Federal Confidentiality of Alcohol and Drug AbusePatient Records regulations: The Federal rules restrict any use of the information to criminally investigate or prosecute any alcohol or drug abuse patient.[facility] Reason for Referral * MRI/CT (Routine) - New Request Specialty Diagnoses / Procedures Referred By Kacy porter Referred To Contact [facility] Diagnoses Multiple sclerosis (HCC) Procedures MRI BRAIN WO/W IVCON MRI BRAIN BRAIN STEM W/O W/CONTRAST MATERIAL Lisa Angel PA-C [address] [place] [address] Phone: tel: fax: [place] [phone] Referral ID Status Reason Start Date Expiration Date Visits Requested Visits Authorized [id number] New Request Auto-Generat ed Referral 10/13/2024 11/12/2025 1 1 Reason for Visit * Reason Comments Refill Request Encounter Details Date Type Department Care Team (Late st Contact Info) Description 10/12/2024 Refill [facility] [address] [address] Rafael Mejía MD [address] [place] [address] Refill Request Social History Tobacco Use Types Packs/Day Years Used Date Smoking Tobacco: Former Cigarettes Q uit: 04/20/2009 Smokeless Tobacco: Never PHQ-2 Answer Date Recorded PHQ-2 score 2 05/23/2024 Area Deprivation Index Answer Date Jeffy rded National Score (1-100), lower number is lower ri sk 92 11/27/2022 State Score (1-10), lower number is lower risk 9 11/27/2022 Data from: https://www.neighborhoodatlas.medicine.[facility].edu/. Last address used for calculation [address] [place] [address] 11/27/2022 Comments No Sex and Gender Information Value Date Recorded Sex Assigned at Not on file Legal Sex Female 11:01 AM EST Gender Identity Not on file Sexual Orientation Not on file documented as of this encounter Miscellaneous Notes * Telephone Encounter - Lisa Angel PA-C - 10/13/2024 4:30 PM EDT The following approved medication requests have been transmitted electronically. Requested Prescriptions Signed Prescriptions Disp Refills fingolimod (GILENYA) 0.5 mg capsule 30 capsule 0 Sig: TAKE ONE CAPSULE BY MOUTH EVERY AFTERNOON Authorizing Provider: LISA ANGEL iv contrast (will be provided with radiology test) 1 each 0 Sig: MRI Brain Inject, intravenously, once for 1 dose.No IV access, insert saline lock prior to beginning of sedation, infusion, injection of imaging exam.Discontinue saline lock post exam. If Pt. has a central line or IVAD, may access for administration according to line specific nursing protocol.Once exam is complete flush line and de-access according to line specific nursing protocol in the [facility] administration guidelines link Authorizing Provider: LISA ANGEL PA-C * Telephone Encounter - Russellchey Char Francine - 10/13/2024 11:30 AM EDT Source : electronic from pharmacy requesting refill. Delivery : e-script Requested Prescriptions Pending Prescriptions Disp Refills fingolimod (GILENYA) 0.5 mg capsule [Pharmacy Med Name: FINGOLIMOD 0.5 MG CAPSULE] 30 capsule 0 Sig: TAKE ONE CAPSULE BY MOUTH EVERY AFTERNOON DX : Patient last seen: 10/06/2023 Next Appointment : None Francine Pardo documented in this encounter Plan of Treatment Scheduled Orders Name Type Priority Associated Diagnoses Orde r Schedule COMPLETE BLOOD COUNT AND DIFFERENTIAL Lab Routine Multiple sclerosis (HCC) Expected: 10/13/2024, Expires: 01/12/2025 HEPATIC FUNCTION PNL Lab Routine Multiple sclerosis (HCC) Expected: 10/13/2024, Expires: 01/12/2025 MRI BRAIN WO/W IVCON Radiology Routine Multiple sclerosis (HCC) 1 Occurrences starting 10/13/2024 until 11/12/2025 documented as of this encounter Visit Diagnoses Diagnosis Multiple sclerosis (HCC)- Primary Multiple sclerosis documented in this encounter Care Teams Emt Intermediate Relationship Specialty Start Date End Date Charisse Hoffmann CNP PCP - General Family Medicine 05/04/19 Margaret Michaud CNP Neurology 05/04/19 documented as of this encounter
--- OUTSIDE RECORDS SUMMARY | 2024-11-11 12:58 | XMS_ITS | Encounter Summary ---
Author Organization [facility] Address [address] [place] [address] Care Team Providers Care Supervisor Bleach Plant Name Role Phone Shun Charisse DEGROOT Primary Care Provider [phone]- [phone] Radha Michauda Lincoln PROCESS TRAINER Unavailable [phone] Source Comments In the event this information is protected by the Federal Confidentiality of Alcohol and Drug AbusePatient Records regulations: The Federal rules restrict any use of the information to criminally investigate or prosecute any alcohol or drug abuse patient.[facility] Reason for Visit * Reason Comments Refill Request Encounter Details Date Type Department Care Team (Late st Contact Info) Description 11/02/2023 [facility] [address] [address] [place] [address] [place] [address] [place] [address] Refill Request Social History Tobacco Use Types Packs/Day Years Used Date Smoking Tobacco: Former Cigarettes Q uit: 04/20/2009 Smokeless Tobacco: Never PHQ-2 Answer Date Recorded PHQ-2 score 2 05/23/2024 Area Deprivation Index Answer Date Jeffy rded National Score (1-100), lower number is lower ri sk 92 11/27/2022 State Score (1-10), lower number is lower risk 9 11/27/2022 Data from: https://www.neighborhoodatlas.medicine.[facility]/. Last address used for calculation [address] 11/27/2022 Comments No Sex and Gender Information Value Date Recorded Sex Assigned at Not on file Legal Sex Female 11:01 AM EST Gender Identity Not on file Sexual Orientation Not on file documented as of this encounter Miscellaneous Notes * Telephone Encounter - Lisa Angel PA-C - 11/03/2023 3:56 PM EDT The following approved medication requests have been transmitted electronically. Requested Prescriptions Signed Prescriptions Disp Refills fingolimod (GILENYA) 0.5 mg capsule 30 capsule 11 Sig: Take 1 capsule by mouth every afternoon. Authorizing Provider: YAMILA ESPINO Ordering User: LISA ANGEL PA-C * Telephone Encounter - Francine Dietrich - 11/02/2023 10:15 AM EDT Source : electronic from pharmacy requesting refill. Delivery : e-script Requested Prescriptions Pending Prescriptions Disp Refills fingolimod (GILENYA) 0.5 mg capsule [Pharmacy Med Name: FINGOLIMOD 0.5 MG CAPSULE] 30 capsule 11 Sig: Take 1 capsule by mouth every afternoon. DX : Patient last seen: 10/06/2023 Next Appointment : 04/05/2024 Francine Pardo documented in this encounter Plan of Treatment Not on file documented as of this encounter Visit Diagnoses Not on filedocumented in this encounter Care Teams Supervisor Bleach Plant Relationship Specialty Start Date End Date Charisse Hoffmann CNP PCP - General Family Medicine 05/04/19 Margaret Michaud CNP Neurology 05/04/19 documented as of this encounter
--- OUTSIDE RECORDS SUMMARY | 2024-11-11 12:58 | XMS_ITS | Encounter Summary ---
Author Organization [facility] Address [address] [place] [address] Care Team Providers Care Heater Tender Name Role Phone Charisse Hoffmann CNP Primary Care Provider +1- [phone] Jaswant Margaret Lincoln SALESPERSON SEWING MACHINES Unavailable Source Comments In the event this information is protected by the Federal Confidentiality of Alcohol and Drug AbusePatient Records regulations: The Federal rules restrict any use of the information to criminally investigate or prosecute any alcohol or drug abuse patient.[facility] Encounter Details Date Type Department Care Team (Late st Contact Info) Description 06/23/2022 [place] [address] Provider, Ccf MRI Screening Questionnaire Completion Required Social History Tobacco Use Types Packs/Day Years Used Date Smoking Tobacco: Former Cigarettes Q uit: 04/20/2009 Smokeless Tobacco: Never PHQ-2 Answer Date Recorded PHQ-2 score 2 07/29/2021 Area Deprivation Index Answer Date Jeffy rded National Score (1-100), lower number is lower ri sk 97 06/25/2022 State Score (1-10), lower number is lower risk N ot on file 06/25/2022 Data from: https://www.neighborhoodatlas.medicine.[facility].edu/. Last address used for calculation [address] [facility] 06/25/2022 Comments No Sex and Gender Information Value Date Recorded Sex Assigned at Not on file Legal Sex Female 11:01 AM EST Gender Identity Not on file Sexual Orientation Not on file documented as of this encounter Plan of Treatment Not on file documented as of this encounter Visit Diagnoses Not on filedocumented in this encounter Care Teams Heater Tender Relationship Specialty Start Date End Date Charisse Hoffmann CNP PCP - General Family Medicine 05/04/19 Margaret Michaud CNP Neurology 05/04/19 documented as of this encounter
--- OUTSIDE RECORDS SUMMARY | 2024-11-11 12:59 | XMS_ITS | Encounter Summary ---
Author Organization [facility] Sys [facility] Address [id number] [address] [place] [address] Care Team Providers Care Ux Specialist Name Role Phone Charisse Hoffmann PIN CLEANER-VAMP LINER Primary Care Provide r Encounter Details Date Type Department Care Team (Late st Contact Info) Description 03/06/2020 Orders Only [facility] [address] [facility]. 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 Unable to assess 03/05/2020 1:50 PM EST documented as of this encounter [...] documented as of this encounter Care Teams Ux Specialist Relationship Specialty Start Date End Date Charisse Hoffmann APRN-VAMP LINER [address] [place] [address] PCP - General Family Medicine 11/19/17 documented as of this encounter
--- OUTSIDE RECORDS SUMMARY | 2024-11-11 12:59 | XMS_ITS | Encounter Summary ---
Author Organization [facility] Address [address] [facility], [address] [place] [address] Care Team Providers Care Scooping Machine Tender Name Role Phone Charisse Hoffmann APRN - VICE PRESIDENT RISK MANAGEMENT Primary Care Provi janet Encounter Details Date Type Department Care Team (Late st Contact Info) Description 10/27/[address] [facility] Specialty Clinic ([facility]) [address] [place] [phone] Louise Mcintosh V, DO [address] [phone] Social History Tobacco Use Types Packs/Day Years [...] as of this encounter Plan of Treatment Upcoming Encounters Date Type Department Care Team (Late st Contact Info) Description 11/14/2024 10:00 AM EDT Hospital Encounter [facility] Specialty Clinic ([facility]) [address] [place] [phone] 11/21/2024 3:45 PM EDT Office Visit [facility] UR[facility] Part of [address] [place] [address] Yadiel Jimenes MD [address] [facility], [address] [place], [place] [phone] urine leaking, MS 11/29/2024 3:00 PM EDT Office Visit [facility] [address] [place] [address] Louise Mcintosh DO [address] [place], [place] [phone] 2-3 months MS documented as of this encounter Visit Diagnoses Not on filedocumented in this encounter Care Teams Scooping Machine Tender Relationship Specialty Start Date End Date Charisse Hoffmann APRN - VICE PRESIDENT RISK MANAGEMENT [address] [place], [place] [phone] PCP - General Pediatric Rehabilitation 07/21/24 documented as of this encounter
--- OUTSIDE RECORDS SUMMARY | 2024-11-11 12:59 | XMS_ITS | Encounter Summary ---
Author Organization [facility] Address [id number] [address] [place] [address] Care Team Providers Care Assistant Director Of Plant Operations Name Role Phone Charisse Hoffmann APRN-FIRE OBSERVER Primary Care Provide r Reason for Visit * Reason Comments Med Refill Encounter Details Date Type Department Care Team (Late st Contact Info) Description 07/31/2024 Refill [facility] - Medical Oncology [address] [place] [address] Juan Alberto Pinto MD [address] [facility] [address] [place] [address] Social History Tobacco Use Types Packs/Day Years [...] got money to buy more. Never True 06/22/2024 Within the past 12 months th e food we bought just didn't last and we didn't have money to get more. 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
--- OUTSIDE RECORDS SUMMARY | 2024-11-11 12:59 | XMS_ITS | Encounter Summary ---
Author Organization [facility] Address [address] [facility], [address] [place] [address] Care Team Providers Care Real Estate Specialist Name Role Phone Charisse Hoffmann APRN - SEWING MACHINE REPAIRER Primary Care Provi janet Encounter Details Date Type Department Care Team (Late st Contact Info) Description 09/29/2024 Telephone [facility] Specialty Clinic ([facility] [address] [place] [address] [phone] Shila Hernandez RN Social History Tobacco Use Types Packs/Day Years [...] Encounters Date Type Department Care Team (Late Contact Info) Description 11/14/2024 10:00 AM EDT Hospital Encounter [facility] Specialty Clinic ([facility]) [address] [place] [phone] 11/21/2024 3:45 PM EDT Office Visit [facility] UROLOGY Part of [address] [place] [address] Yadiel Jimenes MD [address] [place] [address], [address] [place] [address] urine leaking, [place] 11/29/2024 3:00 PM EDT Office Visit [facility] Neurology [address] [place] [address] Louise Mcintosh DO [address] [place] [address] 2-3 months MS documented as of this encounter Visit Diagnoses Not on filedocumented in this encounter Care Teams Real Estate Specialist Relationship Specialty Start Date End Date Charsise Hoffmann APRN - SEWING MACHINE REPAIRER [address] [place] [address] PCP - General Pediatric Rehabilitation 07/21/24 documented as of this encounter
--- OUTSIDE RECORDS SUMMARY | 2024-11-11 12:59 | XMS_ITS | Encounter Summary ---
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 No / Unsure 05/03/2020 1:53 PM EST documented as of this encounter Miscellaneous Notes * Telephone Encounter - ALONDRA Christie - 04/30/2020 12:34 PM EST covid test negative * Telephone Encounter - Shanon Mccarthy CMA - 04/30/2020 12:34 PM EST Patient notified of test results and verbalizes understanding. documented in this encounter Plan of Treatment [...] documented as of this encounter Care Teams Customs Examiner Relationship Specialty Start Date End Date Charisse Hoffmann APRN-CNP [address] [place] [address] PCP - General Family Medicine 11/19/17 documented as of this encounter
--- OUTSIDE RECORDS SUMMARY | 2024-11-11 12:59 | XMS_ITS | Encounter Summary ---
Author Organization [employer] Address [id number] [address] 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 on file Not on file documented as of this encounter Plan of Treatment Not on file documented as of this encounter Visit Diagnoses Not on filedocumented in this encounter Additional Health Concerns Assessment Noted Time PHQ-9 Depression Total Score: 0 11/08/19 25 4:07 PM EDT A Body Mass Index follow-up plan has been documented for the patient 11/07/2024 4:19 PM EDT documented as of this encounter Care Teams Home Visit Field Care Manager Relationship Specialty Start Date End Date Charisse Hoffmann APRN-ZANE [address] [place] [address] PCP - General Family Medicine 11/19/17 documented as of this encounter
--- OUTSIDE RECORDS SUMMARY | 2024-11-11 12:59 | XMS_ITS | Encounter Summary ---
Author Organization [facility] Address [address], [address] [place] [address] Care Team Providers Care Washer Off Name Role Phone Charisse Hoffmann APRN - SNAKER TRACTOR DRIVER Primary Care Provi janet Encounter Details Date Type Department Care Team (Late st Contact Info) Description 10/30/2024 Orders Only [facility] [address] [place] [address] [phone] Sarita Goss, [facility] Social History Tobacco Use Types Packs/Day Years [...] Description 11/14/2024 10:00 AM EDT Hospital Encounter [facility] [address] [place] [address] [phone] 11/21/2024 3:45 PM EDT Office Visit [facility] Part of [address] [place] [id number] Yadiel Jimenes MD [address] [place] [address], [address] [place] [address] urine leaking, [place] 11/29/2024 3:00 PM EDT Office Visit [facility] Neurology [address] [place] [address] Louise Mcintosh DO [address] [place] [address] 2-3 months MS documented as of this encounter Visit Diagnoses Not on filedocumented in this encounter Care Teams Washer Off Relationship Specialty Start Date End Date Charisse Hoffmann APRN - SNAKER TRACTOR DRIVER [address] [place] [address] PCP - General Pediatric Rehabilitation 07/21/24 documented as of this encounter
--- OUTSIDE RECORDS SUMMARY | 2024-11-11 12:59 | XMS_ITS | Encounter Summary ---
Author Organization [employer] Address [id number] [address] 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
--- OUTSIDE RECORDS SUMMARY | 2024-11-11 12:59 | XMS_ITS | Clinical Summary ---
Author Organization [facility] Address [address], [address] [place] [address] Care Team Providers Care Dean Of Admissions Name Role Phone Charisse Hoffmann APRN, CNP Primary Care Provi janet Allergies No known active allergies Medications vitamin B-12 (CYANOCOBALAMIN ) 1000 MCG tablet Take 1 tablet by mouth every morning 07/14/2024 Active DULoxetine (CYMBALTA) 30 MG extended release capsule Take 1 capsule by mouth daily Active esomeprazole (NEXIUM) 40 MG delayed release capsule Take 1 capsule by mouth 2 times daily 06/02/2024 Active medroxyPROGESTE Josiah (DEPO-PROVERA) 150 MG/ML injection Inject 1 mL into the muscle Active omeprazole (PRILOSEC) 40 MG delayed release capsule Take 1 capsule by mouth 2 times daily (before meals) 10/15/2023 Active TRULANCE 3 MG TABS Take 1 tablet by mouth every morning 01/08/2024 Active Fingolimod HCl 0.5 MG CAPS Take 0.5 mg by mouth 11/03/2023 Active SEROQUEL 50 MG tablet Take 1 tablet by mouth 3 times daily Active predniSONE (DELTASONE) 1 MG tablet Take by mouth daily Pt is unsure of dosage, states she is on a taper dose Active Active Problems Problem Noted Date Diagnosed Date Multiple sclerosis 09/27/2024 Encounters Date Type Department Care Team Description 10/31/2024 12:11 PM EDT - 10/31/2024 11:59 PM EDT Hospital Encounter [facility] Specialty Clinic (MOB) [address] [place] [id number] Multiple sclerosis (HCC) (Primary Dx) Discharge Disposition: Home or Self Care 10/30/2024 Orders Only [facility] [address] [place] [address] Sarita Goss, [facility] 10/27/2024 Abstract [facility] Specialty Clinic (MOB) [address] [place], [place] [id number] Bite, Louise V, DO 10/26/2024 Telephone [facility] Neurology Specialist [address] [place] [address] [address] [place] [phone] Bite, Louise V, DO Other (10 26 2024 Ariel [email or web address] ) 10/13/2024 12:48 PM EDT - 10/15/2024 11:59 PM EDT Hospital Encounter [place] [id number] Bite, Louise V, DO Multiple sclerosis (HCC); Vision changes; Optic neuritis Discharge Disposition: Home or Self Care 10/11/2024 Telephone [facility] Specialty Clinic ([facility]) [address] [place], [place] [id number] Leonor Roberto, RN 10/04/2024 Telephone [facility] Neurology Specialist [address] [place] [address] [address] [place] [phone] Bite, Louise V, [facility] 09/30/2024 8:36 AM EDT - 09/30/2024 11:59 PM EDT Hospital Encounter [facility] Specialty Clinic ([facility]) [address] [place], [place] [id number] Multiple sclerosis (HCC) (Primary Dx) Discharge Disposition: Home or Self Care 09/30/2024 Orders Only [facility] [address] [place], [place] [id number] Estelita Gil, [facility] 09/29/2024 Telephone [facility] Specialty Clinic ([facility]) [address] [place] [phone] Shila Hernandez, RN 09/28/2024 Results Follow-Up [facility] Neurology Specialist [address] [place] [address] [address] [place] [phone] Bite, Louise VDO 09/28/2024 Telephone [facility] Neurology Specialist [address] [place] [phone] Louise Mcintosh DO Start form - MM (Ocrevus and Briumvi - MM) 09/27/2024 2:42 PM EDT - 09/27/2024 11:59 PM EDT Hospital Encounter [facility] Lab Draw [address] [place], [place] [id number] Multiple sclerosis (HCC); At risk for side effect of medication; Need for hepatitis B screening test Discharge Disposition: Home or Self Care 09/27/2024 1:40 PM EDT Office Visit [facility] Neurology [address] [place] [address] Louise Mcintosh DO Multiple sclerosis (HCC) (Primary Dx); At risk for side effect of medication; Vision changes; High risk medication use 09/27/2024 Telephone [facility] Neurology Specialist [address] [place] [phone] Louise Mcintosh DO Request for records from ophthalmology (DAREN ) from Last 3 Months Social History Tobacco Use Types Packs/Day Years Used Date Smoking Tobacco: Former Cigarettes Passive Smoke Exposure: Never Smokeless Tobacco: Never Tobacco Cessation:Counseling Given: Not Answered Alcohol Use Standard Drinks/Week Comments Yes 0 [...] - Inhaled Oxygen Concentration - - Weight 84.2 kg (185 lb 9.6 oz) 09/27/2024 1:48 P M EDT Height 167.6 cm (5' 6 ) 09/27/2024 1:48 PM EDT Body Mass Index 29.96 09/27/2024 1:48 PM EDT Plan of Treatment Upcoming Encounters Date Type Department Care Team (Late st Contact Info) Description 11/14/2024 10:00 AM EDT Hospital Encounter [facility] ([facility] [address], [place] [id number] 11/21/2024 3:45 PM EDT Office Visit [facility] [address] [place] [phone] Yadiel Jimenes MD [address], [address] [place] [address] urine leaking, MS 11/29/2024 3:00 PM EDT Office Visit [facility]rology [address] [place] [address] Louise Mcintosh DO [address] [place] [address] 2-3 months MS Health Maintenance Due Date Last Done Comments Depression Screen 1987 HIV screen 1990 Hepatitis C screen 1993 Pap smear 1996 Cervical cancer screen 2005 HPV (without or with Pap) 2005 Lipids 2015 Colonoscopy 2020 Colorectal Cancer Screen 2020 FIT/FOBT: Average risk 2020 Fecal-DNA (Cologuard): Average risk 2020 Sigmoidoscopy/CT colonography 2020 COVID-19 Vaccine ( season) 2023 07/19/2020, 06/21/2020 Flu vaccine (#1) 11/18/2024 01/20/2024, 03/2023, 01/16/2022, Additional history exists Breast cancer screen 12/15/2024 12/15/2022, 12/12/2021, 10/01/2020, Additional history exists DTaP/Tdap/Td vaccine (6 - Td or Tdap) 10/23/2031 10/22/2021, 01/06/2014, 07/29/2005, Additional history exists Hib vaccine Aged Out 09/06/1990, 05/04/1990 No lo nger eligible based on patient's age to complete this topic Hepatitis B vaccine Completed 02/29/2004, 02/29/2004, 01/07/2002, Additional history exists Meningococcal (ACWY) vaccine Aged Out 07/29/2005 No longer eligible based on patient's age to complete this topic Polio vaccine Completed 07/29/2005, 12/20, 05/04/1990, Additional history exists Pneumococcal 0-49 years Vaccine Aged Out 01/29/2023 No longer eligible based on patient's age to complete this topic Hepatitis A vaccine Aged Out No longe r eligible based on patient's age to complete this topic Meningococcal B vaccine Aged Out No l onger eligible based on patient's age to complete this topic Procedures Procedure Name Priority Date/Time Associated Diagnosis Comments COMPREHENSIVE METABOLIC PANEL Routine 10/31/2024 12:30 PM EDT CBC WITH AUTO DIFFERENTIAL Routine 10/31/2024 12:30 PM EDT MRI ORBITS FACE NECK W WO CONTRAST STAT 10/13/2024 1:01 PM EDT Multiple sclerosis (HCC) Vision changes Optic neuritis QUANTIFERON (R) TB GOLD Routine 09/27/2024 3:20 PM EDT Multiple sclerosis (HCC) At risk for side effect of medication CBC WITH AUTO DIFFERENTIAL Routine 09/27/2024 3:16 PM EDT Multiple sclerosis (HCC) At risk for side effect of medication HEPATITIS B SURFACE ANTIBODY Routine 09/27/2024 3:16 PM EDT Multiple sclerosis (HCC) At risk for side effect of medication Need for hepatitis B screening test HEPATITIS B SURFACE ANTIGEN Routine 09/27/2024 3:16 PM EDT Multiple sclerosis (HCC) At risk for side effect of medication Need for hepatitis B screening test HEPATITIS B CORE ANTIBODY, TOTAL Routine 09/27/2024 3:16 PM EDT Multiple sclerosis (HCC) At risk for side effect of medication Need for hepatitis B screening test COMPREHENSIVE METABOLIC PANEL Routine 09/27/2024 3:16 PM EDT Multiple sclerosis (HCC) At risk for side effect of medication VITAMIN D 25 HYDROXY Routine 09/27/2024 3:16 PM EDT Multiple sclerosis (HCC) At risk for side effect of medication from Last 3 Months Results * (ABNORMAL) CBC with Auto Differential (10/31/2024 12:30 PM EDT) Only the most recent of2 resultswithin the time period is included. WBC 7.9 3.5 - 11.3 k/uL 10/31/2024 12:30 PM [facility] RBC 5.44(H) 3.95 - 5.11 m/uL 10/31/2024 12:30 PM [facility] Hemoglobin 14.8 11.9 - 15.1 g/dL 10/31/2024 12:30 PM [facility] Hematocrit 43.2 36.3 - 47.1 % 10/31/2024 12:30 PM [facility] MCV 79.4(L) 82.6 - 102.9 fL 10/31/2024 12:30 PM [facility] MCH 27.2 25.2 - 33.5 pg 10/31/2024 12:30 PM [facility] MCHC 34.3 28.4 - 34.8 g/dL 10/31/2024 12:30 PM [facility] RDW 14.0 11.8 - 14.4 % 10/31/2024 12:30 PM [facility] Platelets 363 138 - 453 k/uL 10/31/2024 12:30 PM [facility] MPV 9.9 8.1 - 13.5 fL 10/31/2024 12:30 PM [facility] NRBC Automated 0.0 0.0 per 100 WBC 10/31/2024 12:30 PM EDT [facility] Neutrophils % 70(H) 36 - 65 % 10/31/2024 12:30 PM EDT [facility] Lymphocytes % 20(L) 24 - 43 % 10/31/2024 12:30 PM EDT [facility] Monocytes % 8 3 - 12 % 10/31/2024 12:30 PM EDT [facility] Eosinophils % 1 1 - 4 % 10/31/2024 12:30 PM EDT [facility] Basophils % 0 0 - 2 % 10/31/2024 12:30 PM EDT [facility] Immature Granulocytes % 1(H) 0 % 10/31/2024 12:30 PM EDT [facility] Neutrophils Absolute 5.54 1.50 - 8.10 k/uL 10/31/2024 12:30 PM EDT [facility] Lymphocytes Absolute 1.56 1.10 - 3.70 k/uL 10/31/2024 12:30 PM EDT [facility] Monocytes Absolute 0.63 0.10 - 1.20 k/uL 10/31/2024 12:30 PM EDT [facility] Eosinophils Absolute 0.05 0.00 - 0.44 k/uL 10/31/2024 12:30 PM EDT [facility] Basophils Absolute 0.03 0.00 - 0.20 k/uL 10/31/2024 12:30 PM EDT [facility] Immature Granulocytes Absolute 0.06 0.00 - 0.30 k/uL 10/31/2024 12:30 PM EDT [facility] 10/31/2024 12:3 0 PM EDT 10/31/2024 12:36 PM EDT us Charisse Hoffmann [employer] BACK [employer] - [employer] HEMATOLOGY ORDERABL ES Final Result [facility] [address] [phone] * (ABNORMAL) Comprehensive Metabolic Panel (10/31/2024 12:30 PM EDT) Only the most recent of2 resultswithin the time period is included. Sodium 139 136 - 145 mmol/L 10/31/2024 12:30 PM [facility] Potassium 4.2 3.7 - 5.3 mmol/L 10/31/2024 12:30 PM [facility] Chloride 109(H) 98 - 107 mmol/L 10/31/2024 12:30 PM [facility] CO2 17(L) 20 - 31 mmol/L 10/31/2024 12:30 PM [facility] Anion Gap 13 9 - 16 mmol/L 10/31/2024 12:30 PM [facility] Glucose 97 74 - 99 mg/dL 10/31/2024 12:30 PM [facility] BUN 11 6 - 20 mg/dL 10/31/2024 12:30 PM [facility] Creatinine 0.9 0.50 - 0.90 mg/dL 10/31/2024 12:30 PM [facility] Est, Glom Filt Rate 82 >60 mL/min/1.7 3m2 10/31/2024 12:30 PM [facility] Comment: These results are not [...] 12 9 - 20 10/31/2024 12:30 PM [facility] Calcium 9.3 8.6 - 10.4 mg/dL 10/31/2024 12:30 PM [facility] Total Protein 6.7 6.6 - 8.7 g/dL 10/31/2024 12:30 PM [facility] Albumin 4.2 3.5 - 5.2 g/dL 10/31/2024 12:30 PM EDT [facility] Albumin/Globulin Ratio 1.7 1.0 - 2.5 10/31/2024 12:30 PM EDT [facility] Total Bilirubin 0.4 0.00 - 1.20 mg/dL 10/31/2024 12:30 PM EDT [facility] Alkaline Phosphatase 100 35 - 104 U/L 10/31/2024 12:30 PM EDT [facility] ALT 18 10 - 35 U/L 10/31/2024 12:30 PM EDT [facility] AST 15 10 - 35 U/L 10/31/2024 12:30 PM EDT [facility] 10/31/2024 12:3 0 PM EDT 10/31/2024 12:36 PM EDT us Charisse Hoffmann [employer] CHEMISTRY ORDERABLE S Final Result [facility] [address] [phone] * MRI ORBITS FACE NECK W WO CONTRAST (10/13/2024 1:01 PM EDT) Anatomical Region Laterality Modality Head, Neck Magnetic Resonan ce 10/13/2024 1:41 PM EDT Impressions 10/13/2024 2:20 PM EDT 1. No acute abnormality seen of the orbits. 2. There is an 8 mm extra-axial enhancing mass along the tuberculum sella just to the left of midline. This may represent a meningioma and is unchanged from the prior MRI. 3. 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 This is typically an incidental finding and is unchanged from the prior MRI. Narrative 10/13/2024 2:20 PM EDT EXAMINATION: MRI OF THE ORBITS WITH AND WITHOUT CONTRAST 10/13/2024 1:01 pm TECHNIQUE: Multiplanar multisequence MRI of the orbits was performed with and without intravenous contrast. COMPARISON: MRI brain 08/02/2024. HISTORY: ORDERING SYSTEM PROVIDED HISTORY: Multiple sclerosis ([facility]) TECHNOLOGIST PROVIDED HISTORY: STAT Creatinine as needed:->No right retrobulbar optic neuritis FINDINGS: Focused MRI of the orbits was performed. The lenses are normally located. No abnormality seen of the globes. No convincing abnormal signal seen of the optic nerves, which appear symmetric in caliber. No abnormal enhancement seen of the optic nerves. The extraocular muscles are symmetric. There is no evidence of an orbital mass. There is an 8 mm extra-axial enhancing mass along the tuberculum sella just to the left of midline. 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 Procedure Note Patel Zapata MD - 10/13/2024 EXAMINATION: MRI OF THE ORBITS WITH AND WITHOUT CONTRAST 10/13/2024 1:01 pm TECHNIQUE: Multiplanar multisequence MRI of the orbits was performed with andwithout intravenous contrast. COMPARISON: MRI brain 08/02/2024. HISTORY: ORDERING SYSTEM PROVIDED HISTORY: Multiple sclerosis ([facility]) TECHNOLOGIST PROVIDED HISTORY: STAT Creatinine as needed:->No right retrobulbar optic neuritis FINDINGS: Focused MRI of the orbits was performed. The lenses are normally located. No abnormality seen of the globes. No convincing abnormal signal seen of the optic nerves, which appearsymmetric in caliber. No abnormal enhancement seen of the optic nerves. Theextraocular muscles are symmetric. There is no evidence of an orbital mass. There is an 8 mm extra-axial enhancing mass along the tuberculum sellajust to the left of midline. Enhancement is seen involving the left temporallobe and left insular cortex adjacent to the sylvian fissure, which appears payton due to a large developmental venous anomaly. IMPRESSION: 1. No acute abnormality seen of the orbits. 2. There is an 8 mm extra-axial enhancing mass along the tuberculumsella just to the left of midline. This may represent a meningioma and isunchanged from the prior MRI. 3. There is enhancement involving the left temporal lobe and leftinsular cortex adjacent to the Sylvian fissure, which appears to be due to alarge developmental venous anomaly. This is typically an incidental finding andis unchanged from the prior MRI. Louise Silva DO IM MRI ORDERABLES Final Result * Quantiferon (R) TB Gold, (Incubated) (09/27/2024 3:20 PM EDT) QuantiFERON Nil 0.07 IU/mL 3:20 PM EDT [place] Quantiferon TB1 Minus NIL 0.04 0.00 - 0.34 IU/mL 09/27/2024 3:20 PM EDT [facility] Quantiferon TB2 Minus NIL 0.02 0.00 - 0.34 IU/mL 09/27/2024 3:20 PM EDT [facility] QuantiFERON-TB minus NIL 9.93 IU/mL 09/27/2024 3:20 PM EDT [facility] Quantiferon TB Interpretation NEGATIVE NEGATIVE IU/mL 09/27/2024 3:20 PM EDT [facility] Comment: Quantiferon TB Gold Plus Interferon gamma release is measured for specimens from each of the four collection tubes. A qualitative result (Negative, Positive, or Indeterminate) is based on interpretation of the four values: NIL, MITOGEN minus NIL (MITOGEN-NIL), TB1 minus NIL (TB1-NIL), and TB2 minus NIL (TB2-NIL). The NIL value represents nonspecific reactivity produced by the patient specimen. The MITOGEN-NIL value serves as the positive control for the patient specimen, demonstrating successful lymphocyte activity. The TB1-NIL tube specifically detects CD4+ lymphocyte reactivity, specifically stimulated by the TB1 antigens. The TB2-NIL tube detects both CD4+ and CD8+ lymphocyte reactivity, stimulated by TB2 antigens. An overall negative result does not preclude the possibility of M. tuberculosis infection or tuberculosis disease. A false-positive result in the absence of other clinical evidence of TB infection is not uncommon. Refer to: Updated Guidelines for Using Interferon Gamma Release Assays to Detect Mycobacterium tuberculosis Infection -- [place], 2010 (http://www.cdc.gov/mmwr/preview/mmwrhtml/wx5458t3.htm), for more information concerning test performance in low-prevalence populations and use in occupational screening. Blood BLOOD SPECIMEN / Unknown 09/27/2024 3:20 PM EDT 09/27/2024 3:21 PM EDT us Louise Mcintosh V, DO HEMATOLOGY ORDERABLES Final Resu lt Performing Organization Address [facility] de Phone Number [facility] [address] [place] [address], [facility] [phone] * Hepatitis B Core Antibody, Total (09/27/2024 3:16 PM EDT) Hep B Core Total Ab NONREACTIVE NONREACTIVE 09/27/2024 3:16 PM EDT [facility] [employer] Blood BLOOD SPECIMEN / Unknown 09/27/2024 3:16 PM EDT 09/27/2024 3:17 PM EDT us Louise Mcintosh V, DO IMMUNOLOGY ORDERABLES Final Resu lt Performing Organization Address [facility] Phone Number [facility] [address] [place] [address], [facility] [phone] * (ABNORMAL) Vitamin D 25 Hydroxy (09/27/2024 3:16 PM EDT) Vit D, 25-Hydroxy 23.8(L) 30.0 - 100.0 ng/mL 09/27/2024 3:16 PM EDT [facility] Comment: Reference Range: Vitamin D status Range Deficiency <20 ng/mL Mild Deficiency 20-30 ng/mL Sufficiency 30-100 ng/mL Toxicity >100 ng/mL Blood BLOOD SPECIMEN / Unknown 09/27/2024 3:16 PM EDT 09/27/2024 3:17 PM EDT us Louise Mcintosh V, DO CHEMISTRY ORDERABLES Final Resul t Performing Organization Address [facility] Phone Number [facility] [address] [place] [address], [facility] [phone] * Hepatitis B Surface Antibody (09/27/2024 3:16 PM EDT) Hep B S Ab <3.50 <10 mIU/mL 09/27/2024 3:16 PM EDT [facility] Comment: REFERENCE RANGE: <10.0 NON-REACTIVE/NOT IMMUNE >=10.0 REACTIVE/IMMUNE Blood BLOOD SPECIMEN / Unknown 09/27/2024 3:16 PM EDT 09/27/2024 3:17 PM EDT us Luoise Bite V, DO IMMUNOLOGY ORDERABLES Final Resu lt Performing Organization Address [facility]/ZIP Co de Phone Number [facility] [address] [place] [address], [facility] [phone] * Hepatitis B Surface Antigen (09/27/2024 3:16 PM EDT) Pathologist [facility] Hepatitis B Surface Ag NONREACTIVE NONREACTIVE 09/27/2024 3:16 PM EDT [facility] Blood BLOOD SPECIMEN / Unknown 09/27/2024 3:16 PM EDT 09/27/2024 3:17 PM EDT us Louise Bite V, DO IMMUNOLOGY ORDERABLES Final Resu lt Performing Organization Address [facility] Phone Number [facility] [address] [place] [address], [facility] [phone] from Last 3 Months [place] [id number] [place] [address] [facility] MED[facility] Care Teams Dean Of Admissions Relationship Specialty Start Date End Date Charisse Hoffmann APRN - MIG TIG WELDER [address] [place] [address] PCP - General Pediatric Rehabilitation 07/21/24
--- OUTSIDE RECORDS SUMMARY | 2024-11-11 12:59 | XMS_ITS | Encounter Summary ---
Author Organization [facility] Address [address] [place] [address] Care Team Providers Care Nipple Threader Name Role Phone Shun Charisse DEGROOT Primary Care Provider [phone] JaswantaMrgaret Lincoln SANIPRACTIC PHYSICIAN Unavailable [phone] Source Comments In the event this information is protected by the Federal Confidentiality of Alcohol and Drug AbusePatient Records regulations: The Federal rules restrict any use of the information to criminally investigate or prosecute any alcohol or drug abuse patient.[facility] Encounter Details Date Type Department Care Team (Late st Contact Info) Description 03/10/2024 Get Medical Advice Gastroenterology [address] [address] Maya Tucker APRN.SANIPRACTIC PHYSICIAN [address] [place] [address] Follow up on test Social History Tobacco Use Types Packs/Day Years Used Date Smoking Tobacco: Former Cigarettes Q uit: 04/20/2009 Smokeless Tobacco: Never PHQ-2 Answer Date Recorded PHQ-2 score 0 10/05/2023 Area Deprivation Index Answer Date Jeffy rded National Score (1-100), lower number is lower ri sk 92 11/27/2022 State Score (1-10), lower number is lower risk 9 11/27/2022 Data from: https://www.neighborhoodatlas.medicine.[facility].edu/. Last address used for calculation [address] 11/27/2022 Comments No Sex and Gender Information Value Date Recorded Sex Assigned at Not on file Legal Sex Female 11:01 AM EST Gender Identity Not on file Sexual Orientation Not on file documented as of this encounter Plan of Treatment Not on file documented as of this encounter Visit Diagnoses Not on filedocumented in this encounter Care Teams Nipple Threader Relationship Specialty Start Date End Date Charisse Hoffmann CNP PCP - General Family Medicine 05/04/19 Margaret Michaud CNP Neurology 05/04/19 documented as of this encounter
--- OUTSIDE RECORDS SUMMARY | 2024-11-11 12:59 | XMS_ITS | Encounter Summary ---
Author Organization [employer] Address [id number] [address] 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 No / Unsure 05/04/2020 11:54 AM EST documented as of this encounter Plan of Treatment Not on file documented as of this encounter Procedures Procedure Name Priority Date/Time Associated Diagnosis Comments SARS COV 2 (COVID-19) Routine 04/27/2020 Close exposure to COVID-19 virus documented in this encounter Results * SARS COV 2 (COVID-19)[Lab Collect] (04/27/2020) EXTERNAL SARS COV 2 Negative Negative SUNQUEST NASOPHARYNGEAL 04/27/2020 us Charisse CANTU MICROBIOLOGY - GENERA L ORDERABLES Final Result SUNQUEST documented in this encounter Visit Diagnoses Diagnosis Close exposure to COVID-19 virus documented in this encounter Additional Health Concerns Infection Onset Date Last Indicated Resolved Time COVID-19 Rule-Out 05/05/2020 04/27/2020 05/05/2020 9:47 AM EST Assessment Noted Time PHQ-9 Depression Total Score: 020 2:00 PM EST A Body Mass Index follow-up plan has been documented for the patient 03/01/2020 3:26 PM EST documented as of this encounter Care Teams Nutrition Teacher Relationship Specialty Start Date End Date Charisse Hoffmann APRN-CNP [address] [place] [address] PCP - General Family Medicine 11/19/17 documented as of this encounter
--- OUTSIDE RECORDS SUMMARY | 2024-11-11 12:59 | XMS_ITS | Encounter Summary ---
Author Organization [facility] Address [address], [address] [place] [address] Care Team Providers Care Communications Tech Name Role Phone Charisse Hoffmann APRN - CLOCKMAKER APPRENTICE Primary Care Provi janet Encounter Details Date Type Department Care Team (Late st Contact Info) Description 10/11/2024 Telephone [facility] ([facility] [place] [address] [place] [address] [phone] Leonor Roberto RN Social History Tobacco Use Types Packs/Day [...] Description 11/14/2024 10:00 AM EDT Hospital Encounter [facility] ([facility] [place] [address] [place] [address] 11/21/2024 3:45 PM EDT Office Visit [facility] UROLOG[facility] Part of [address] [place] [phone] Yadiel Jimenes MD [address] [place] [address], [address] [place] [address] urine leaking, MS 11/29/2024 3:00 PM EDT Office Visit [facility] Neurology [address] [place] [address] Louise Mcintosh DO [address] [place] [address] 2-3 months MS documented as of this encounter Visit Diagnoses Not on filedocumented in this encounter Care Teams Communications Tech Relationship Specialty Start Date End Date Charisse Hoffmann APRN - CLOCKMAKER APPRENTICE [address] [place] [address] PCP - General Pediatric Rehabilitation 07/21/24 documented as of this encounter
--- OUTSIDE RECORDS SUMMARY | 2024-11-11 12:59 | XMS_ITS | Encounter Summary ---
Author Organization [facility] Address [address], [address] [place] [address] Care Team Providers Care Trauma Coordinator Name Role Phone Charisse Hoffmann APRN - TRANSPLANT REGISTERED NURSE Primary Care Provi janet Encounter Details Date Type Department Care Team (Late st Contact Info) Description 09/28/2024 Results Follow-Up [facility] Neurology Specialist [address] [place] [address] Dayna, Louise Silva DO [address] [place], [place] [phone] Social History Tobacco Use Types Packs/Day Years [...] Hospital Encounter [facility] ([facility] [address] [place] [address] 11/21/2024 3:45 PM EDT Office Visit [facility] UR[facility] Part of [address] [place] [phone] Yadiel Jimenes MD [address], [address] [place] [address] urine leaking, MS 11/29/2024 3:00 PM EDT Office Visit [facility] Neurology [address] [place] [address] Louise Mcintosh DO [facility] [place] [address] 2-3 months MS documented as of this encounter Visit Diagnoses Not on filedocumented in this encounter Care Teams Trauma Coordinator Relationship Specialty Start Date End Date Charisse Hoffmann APRN - TRANSPLANT REGISTERED NURSE [address] [place] [address] PCP - General Pediatric Rehabilitation 07/21/24 documented as of this encounter
--- OUTSIDE RECORDS SUMMARY | 2024-11-11 12:59 | XMS_ITS | Clinical Summary ---
Author Organization [employer] Address [id number] [address] [place] [address] Care Team Providers Care Selector Packer Name Role Phone Charisse Hoffmann [employer] COMMODITY SALES DELIVERER Primary Care Provide r Allergies No known active allergies Medications * This document contains information received from the source organization and may not represent a complete record from that organization. medroxyPROGESTER one (DEPO-PROVERA) 150 mg/mL injection Inject 1 mL (150 mg total) into the appropriate muscle every 3 (three) months. Active QUEtiapine (SEROquel) 50 mg tablet Take 3 tablets (150 mg total) by mouth nightly. 04/20/19 20 Active QUEtiapine (SEROquel) 100 mg tablet Take 1 tablet (100 mg total) by mouth nightly. Take with 50mg tablet nightly 10/26/19 21 Active DULoxetine (CYMBALTA) 30 mg capsule Take 1 capsule (30 mg total) by mouth in the morning. Active tenapanor (IBSRELA) 50 mg tabletIndication s:Constipation, unspecified constipation type Take 50 mg by mouth in the morning and 50 mg before bedtime. 6 tablet 02/26/20 23 Active plecanatide (TRULANCE) 3 mg tabletIndication s:Chronic idiopathic constipation take 1 tablet by mouth every morning 90 tablet 3 01/08/20 24 Active cyanocobalamin 1000 MCG tablet TAKE 1 TABLET BY MOUTH EVERY MORNING 90 tablet 1 07/15/19 25 Active esomeprazole (NexIUM) 40 mg capsule Take 1 capsule (40 mg total) by mouth in the morning and at bedtime. TAKE 1 CAPSULE BY MOUTH 2 TIMES DAILY 06/02/19 25 Active cefDINIR (OMNICEF) 300 mg capsule Take 1 capsule (300 mg total) by mouth in the morning and 1 capsule (300 mg total) before bedtime. Do all this for 10 days. 20 capsule 11/08/19 25 025 Active GILENYA 0.5 mg capsule 06/20/19 22 025 Discontinu ed(Patient Stopped On Own) ferrous sulfate 325 (65 FE) mg tablet Take 1 tablet (325 mg total) by mouth in the morning. 30 tablet 3 04/05/20 24 025 Discontinu ed(Patient Stopped On Own) Active Problems Problem Noted Date Diagnosed Date Mixed incontinence 11/27/2021 Overview (04/08/2022): 11/27/21: Mixed incontinence, predominantly stress. She is not interested in surgical intervention at this time. Options reviewed, she is interested in pelvic floor physical therapy. She would also like to try an alternative to the oxybutynin. We will try Myrbetriq 50mg 01/22/22: Myrbetriq ineffective. She declined appointment with PFPT but is interested in it now 04/08/22: Markedly improved with pelvic floor physical therapy and Myrbetriq 50 mg. Assessment & Plan (01/22/2022 12:50 PM EDT): She will contact pelvic floor physical therapy to make an appointment. I told her to call me if she has trouble getting through. She has a follow-up in March. She will call me sooner if any problems Assessment & Plan (11/27/2021 10:18 AM EDT): I advised that she monitor her blood pressure and discontinue if elevated. We will see her back in about 3 months or sooner if any problems. Post-operative complication 11/25/2020 Gastroesophageal reflux disease without esophagi tis 09/16/2020 Prasad's esophagus without dysplasia 09/16/2020 Meniere disease 03/31/2019 Memory loss or impairment 02/07/2019 Tinnitus of both ears 02/01/2019 Bilateral hearing loss 02/01/2019 Dizziness 01/20/2019 Eustachian tube dysfunction 01/20/2019 Perceived hearing changes 01/20/2019 Overview (01/18/2023): replacing diagnoses that were inactivated after the 01/18 regulatory import Immunosuppression due to drug therapy 07/15/2018 Multiple sclerosis 06/17/2018 History of bilateral tubal ligation 06/17/2018 Vitamin B12 deficiency 02/18/2018 Overview (02/18/2018): Vitamin B12 (194) with methylmalonic acid elevated (391) - 01/2018 Vitamin D deficiency 02/18/2018 Overview (08/12/2018): January 2018: Level 24.5 05/2018: [place] 88 [place] [address] units twice weekly Abnormal MRI, cervical spine 02/18/2018 Abnormal MRI of head 01/18/2018 Right wrist pain 01/18/2018 Bipolar 1 disorder 08/20/2015 Resolved Problems Problem Noted Date Diagnosed Date Resolved Date Demyelinating disease 01/18/20182020 Stroke risk 12/14/2016 11/20/2017 Encounters Date Type Department Care Team Description 11/07/2024 4:15 PM EDT Office Visit [facility] [address] [place] [address] Charisse Hoffmann APRN-CNP Acute non-recurrent maxillary sinusitis (Primary Dx) 11/07/2024 Travel 09/06/2024 1:30 PM EDT Office Visit [facility] [address] [place] [address] Charisse Hoffmann APRN-CNP Left foot pain (Primary Dx) 09/06/2024 Travel from Last 3 Months Immunizations Immunization Administration Dates Next Due COVID-19, mRNA, LNP-S, PF, 100mcg/0.5mL Dose 07/19/2020,06/21/2020 DTP 10/22/2021 DTaP 09/06/1990,05/04/1990,10/07/1989 DTaP, Unspecified 09/06/1990,05/04/1990,10/07/18 90 Hep B, Adolescent or Pediatric 02/29/2004,2001,08/05/1999 Hepatitis B 02/29/2004,01/07/2002,08/05/1999 HiB 09/06/1990,05/04/1990 IPV 07/29/2005 Influenza (IM) Preservative Free 07/05/2018 Influenza, Injectable, quadr ivalent (PF) 06/19/2021(Deferred: Patient decision) Influenza, Recombinant, Quad rivalent, Injectable, Preserv 01/16/2022 Influenza, Unspecified 07/05/2018 MMR 01/07/2002 Meningococcal MCV4P 07/29/2005 Polio, Unspecified 01/07/2002,05/04/1990, 990 Tdap 01/06/2014,07/29/2005 Zoster Vaccine Recombinant 01/16/2022,11/05/2021 Family History Medical History Relation Name Comments Heart disease Father No Known Problems Mother Breast cancer Neg Hx Colon cancer Neg Hx Ovarian cancer Neg Hx Pancreatic cancer Neg Hx Prostate cancer Neg Hx Uterine cancer Neg Hx Relation Name Status Comments Father Alive Mother Alive Social History Tobacco Use Types Packs/Day Years [...] 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 Not on file Not on file Last Filed Vital Signs [...] (186 lb) 11/07/2024 4:03 PM EDT Height 167 cm (5' 5.75 ) 06/22/2024 9:52 AM EST Body Mass Index 30.25 06/22/2024 9:52 AM EST Plan of Treatment Health Maintenance Due Date Last Done Comments Pap Smear 1996 COVID-19 Vaccine (4 - 2023-2 5 season) 2023 03/06/2021, 07/19/2020, 06/21/2020 Mammogram 07/06/2024 07/07/2023, 12/19, 12/15/2022, Additional history exists Influenza Vaccine 12/19/2024 01/20/2024, , 01/16/2022, Additional history exists Adult BMI Follow Up Plan 11/07/2025 11/07/2024 Adult BMI Screening 11/07/2025 11/07/2024 Depression Screening 11/07/2025 11/07/2024 Tobacco Screening 11/07/2025 11/07/2024 DTaP,Tdap and Td Vaccines (6 - Td or Tdap) 10/23/2031 10/22/2021, 01/06/2014, 07/29/2005, Additional history exists Medical Devices Not on file Procedures Procedure Name Priority Date/Time Associated Diagnosis Comments MAMM DIAGNOSTIC UNILAT RT W CAD Routine 07/07/2023 3:05 PM EDT Abnormal mammogram of right breast from Last 3 Months or Most Recently Relevant to Health Maintenance Results * (ABNORMAL) Mammography diagnostic unilateral right with CAD (07/07/2023 3:05 PM EDT) Anatomical Region Laterality Modality Breast Right Mammography 07/07/2023 3:43 PM EDT Narrative 07/07/2023 3:46 PM EDT EXAM: MAMM DIAGNOSTIC UNILAT RT W CAD, 07/07/2023 2:48 PM CLINICAL INDICATIONS: Abnormal mammogram of right breast, COMPARISON: 12/30/2022 TECHNIQUE: Supplemental views of the right breast were obtained for diagnostic workup. Digital tomosynthesis images were obtained, with creation of synthetic 2D views. Computer aided detection was utilized. In addition, sonographic evaluation of the central aspect of the right breast was performed. FINDINGS: There are scattered areas of fibroglandular density. The previous described oval nodule in the posterior central aspect of the right breast is again seen mammographically. It is unchanged in size and appearance since prior study. In retrospect, it also appears to have been present on a previous examination dated 12/12/2021. Sonographically, no cystic or solid abnormalities are demonstrated. Normal-appearing fibroglandular tissue seen throughout. IMPRESSION: Stable size and appearance of the oval shaped nodule in the central posterior aspect of the right breast, unchanged the previous examination dated 12/30/2022. This nodule however could not be visualized sonographically. Because of its lack of interval change, and most like represent a benign process. A bilateral mammogram in 6 months (which will be one year for the left breast) is recommended to ensure stability. BI-RADS: BI-RADS 3 - Probably Benign Recommendation: Repeat diagnostic mammogram in 6 months Patient was given the results before leaving the department. Finalized by Ephraim Tee MD on 07/07/2023 3:46 PM 3 b MAMM 6 MONTH Procedure Note Ephraim Tee MD - 07/07/2023 EXAM: MAMM DIAGNOSTIC UNILAT RT W CAD, 07/07/2023 2:48 PM CLINICAL INDICATIONS: Abnormal mammogram of right breast, COMPARISON: 12/30/2022 TECHNIQUE: Supplemental views of the right breast were obtained for diagnosticworkup. Digital tomosynthesis images were obtained, with creation ofsynthetic 2D views. Computer aided detection was utilized. In addition, sonographic evaluation of the central aspect of the rightbreast was performed. FINDINGS: There are scattered areas of fibroglandular density. The previous described oval nodule in the posterior central aspect of theright breast is again seen mammographically. It is unchanged in size andappearance since prior study. In retrospect, it also appears to have beenpresent on a previous examination dated 12/12/2021. Sonographically, no cystic or solid abnormalities are demonstrated.Normal- appearing fibroglandular tissue seen throughout. IMPRESSION: Stable size and appearance of the oval shaped nodule in the centralposterior aspect of the right breast, unchanged the previous examinationdated 12/30/2022. This nodule however could not be visualizedsonographically. Because of its lack of interval change, and most likerepresent a benign process. A bilateral mammogram in 6 months (which will be one year forthe left breast) is recommended to ensure stability. BI-RADS: BI-RADS 3 - Probably Benign Recommendation: Repeat diagnostic mammogram in 6 months Patient was given the results before leaving the department. Finalized by Ephraim Tee MD on 07/07/2023 3:46 PM 3 b MAMM 6 MONTH Charisse CANTU IMG MAMMOGRAPHY ORDER KEVIN Final Result from Last 3 Months or Most Recently Relevant to Health Maintenance Insurance [facility] MEDICAID Advance Directives * Full Code (Latest Code Status on File) Date Activated Date Inactivated Comments 11/25/2020 4:57 AM 11/26/2020 7:26 PM * Full Code Date Activated Date Inactivated Comments 12/14/2016 1:23 PM 12/16/2016 10:10 PM * Full Code Date Activated Date Inactivated Comments 08/21/2015 6:25 AM 08/21/2015 5:04 PM Care Teams Selector Packer Relationship Specialty Start Date End Date Charisse Hoffmann APRN-CNP [address] [place] [address] PCP - General Family Medicine 11/19/17
--- OUTSIDE RECORDS SUMMARY | 2024-11-11 12:59 | XMS_ITS | Patient Health Record ---
Author Organization [facility] Address [address] [place] [address] Care Team Providers Care Can Feeder Name Role Phone uniqueRivas Narda Primary Care Provider Aneesh Christian Unavailable [phone] Reason For Referral No Information Medications Medication SIG (Take, Route, Frequency, Duration) Notes Start Date End Date Status Depo-Provera 150 MG/ML 1 ml Intramuscula r; Duration: 30 day(s) Active Paxil 20 MG fran Alba Orally On ce a day; Duration: 30 day(s) Not-Taking Minocycline 50 mg 1 capsule Orally daily Not-Taking Tessalon Perles 100 MG 1 capsule as need ed Orally Three times a day; Duration: 30 days 02/03/2014 Active Cetirizine HCl 10 MG 1 tablet as needed Orally Once a day; Duration: 30 day(s) 02/03/2014 Not-Taking SM Nasal Savannah Saline 0.65 % 2 drops in each nostril as needed Nasally every 2 hrs 01/16/2014 Not-Taking Problems Problem Type SNOMED Code ICD Code Onset Dates Problem Status W/U Status Risk Notes Problem Verruca vulgaris (53547889) Viral warts, unspecified (078.10) Active confirmed Problem Other constipation (564.09) Active confirmed Plan Of Treatment No Information Insurance Providers Payer Name Payer Address Payer Phone Subscriber Number Group Number Insured Name Patient Relationship to Insured Coverage Start Date Coverage End Date [facility] [address] [place] [address] [id number] KENNY MILLS Self - patient is the insured 3 zMEDICAID CFC after [id number] med [address] [place] [address] [id number] KENNY MILLS Self - patient is the insured 3 Medical (General) History Medical History History ICD Code LEVEL 3 Bi Polar constipation Surgical History Surgery Date(Month/Year) appendectomy Cyst removed from right arm Cyst removed from ovary
--- OUTSIDE RECORDS SUMMARY | 2024-11-11 12:59 | XMS_ITS | Encounter Summary ---
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 Please keep appointment with neurology and wellness with me, waiting urine culture documented in this encounter Plan of Treatment Not on file documented as of this encounter Visit Diagnoses Not on filedocumented in this encounter Additional Health Concerns Assessment Noted Time PHQ-9 Depression Total Score: 9 08/26/19 23 1:21 PM EDT A Body Mass Index follow-up plan has been documented for the patient 08/25/2022 3:27 PM EDT documented as of this encounter Care Teams Decorating Instructor Relationship Specialty Start Date End Date Charisse Hoffmann APRN-CNP [address] [place] [address] PCP - General Family Medicine 11/19/17 documented as of this encounter
--- OUTSIDE RECORDS SUMMARY | 2024-11-11 12:59 | XMS_ITS | Encounter Summary ---
Author Organization [employer] Address [facility] [place] [id number] [address] [place] [address] Care Team Providers Care Breast Surgeon Name Role Phone Charisse Hoffmann CONSTRUCTION FIELD ENGINEER-DRAGGER OUT Primary Care Provide r Encounter Details Date Type Department Care Team (Late st Contact Info) Description 09/03/2022 Telephone [facility] [address] [facility] [address] [facility] [address] [place] [phone] Marie Wright RN Social History Tobacco Use Types Packs/Day [...] 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 Denies fever, nausea, vomiting Has been taking Gas X, continues to have bloating Drinking fluids, had a normal bowel movement lastnight * Telephone Encounter - Julisa Johnson MD - 09/03/2022 11:43 AM EDT Abdominal x-ray to recheck stool burden. * Telephone Encounter - Marie Wright RN - 09/03/2022 11:43 AM EDT Called patient, instructed to have abdominal x-ray, order in chart documented in this encounter Plan of Treatment Not on file documented as of this encounter Visit Diagnoses Not on filedocumented in this encounter Additional Health Concerns Assessment Noted Time PHQ-9 Depression Total Score: 9 08/26/19 1:21 PM EDT A Body Mass Index follow-up plan has been documented for the patient 08/25/2022 3:27 PM EDT documented as of this encounter Care Teams Breast Surgeon Relationship Specialty Start Date End Date Charisse Hoffmann APRN-ZANE [address] [place] [address] PCP - General Family Medicine 11/19/17 documented as of this encounter
--- NOTE | 2024-11-11 13:02 | ED.GENADUL1 ---
HPI HPI - General Adult General Chief complaint: Upper Respiratory Infection Stated complaint: SOB WHEEZING CHEST PAINS Time Seen by Provider: 11/11/24 12:46 Source: patient Mode of arrival: walk-in History of Present Illness HPI narrative: 49-year-old female presented to the emergency department for a chief complaint of cough. She has had it for a week and has been coughing up cream-colored phlegm. She was put on prednisone and an inhaler and Tessalon from an urgent care center but she has not gotten better. She is scheduled for a procedure next week and wanted to clear this respiratory issue up. No fever or hemoptysis. Related Data Home Medications ?Medication ?Instructions ?Recorded ?Confirmed albuterol sulfate 90 mcg/actuation 2 puff inhalation Q4H PRN 11/11/24 11/11/24 aerosol inhaler shortness of breath or wheezing benzonatate 100 mg capsule 100 mg PO Q6H PRN cough 11/11/24 11/11/24 cefdinir 300 mg capsule 300 mg PO BID 11/11/24 11/11/24 cyanocobalamin (vitamin B-12) 1,000 mcg PO DAILY 11/11/24 11/11/24 1,000 mcg tablet duloxetine 30 mg capsule,delayed 30 mg PO DAILY 11/11/24 11/11/24 release esomeprazole magnesium 40 mg 40 mg PO BID 11/11/24 11/11/24 capsule,delayed release plecanatide 3 mg tablet (Trulance) 3 mg PO DAILY 11/11/24 11/11/24 prednisone 20 mg tablet 60 mg PO DAILY 11/11/24 11/11/24 quetiapine 50 mg tablet 50 mg PO BID 11/11/24 11/11/24 Previous Rx's ?Medication ?Instructions ?Recorded azithromycin 250 mg tablet See Rx Instructions PO .COMPLEX #6 11/11/24 (Zithromax Z-Maikol) tabs benzonatate 100 mg capsule 100 mg PO TID PRN cough #20 caps 11/11/24 Allergies Allergy/AdvReac Type Severity Reaction Status Date / Time No Known Drug Allergies Allergy Verified 11/11/24 12:49 Review of Systems ROS Narrative A ten point review of systems is negative except as noted above. PFSH PFSH Social History Little interest or pleasure in doing things: not at all Feeling down, depressed, or hopeless: not at all Exam Narrative Exam Narrative: Nurses note and vital signs reviewed and patient is not hypoxic. General: The patient appears well and in no apparent distress. Patient is resting comfortably on cart. Skin: Warm, dry, no pallor noted. There is no rash noted. Head: Normocephalic, atraumatic Eye: Normal conjunctiva, no drainage Ears, Nose, Mouth, and Throat: oral mucosa is moist. Nares patent. Cardiovascular: Regular Rate and Rhythm Respiratory: Patient is in no distress, no accessory muscle use, lungs show a few rhonchi. Breath sounds are Back: non-tender GI: Soft and nontender Musculoskeletal: The patient has no evidence of calf tenderness, no pitting edema, symmetrical pulses noted bilaterally Neurological: A&O, normal speech Psychiatric: Cooperative Constitutional Vital Signs, click to edit/add: Last Vital Signs Temp 98.4 F 11/11/24 12:50 Pulse 81 11/11/24 13:04 Resp 16 11/11/24 13:04 BP 124/97 H 11/11/24 12:45 Pulse Ox 97 11/11/24 13:04 O2 Del Method Room Air 11/11/24 13:04 Course Vital Signs Vital signs: Vital Signs Pulse Rate 82 11/11/24 12:45 Respiratory Rate 18 11/11/24 12:45 Blood Pressure 124/97 H 11/11/24 12:45 Pulse Oximetry 97 11/11/24 12:45 Oxygen Delivery Method Room Air 11/11/24 12:45 Temperature 98.4 F 11/11/24 12:50 Pulse Rate 81 11/11/24 13:04 Respiratory Rate 16 11/11/24 13:04 Blood Pressure 124/97 H 11/11/24 12:45 Pulse Oximetry 97 11/11/24 13:04 Oxygen Delivery Method Room Air 11/11/24 13:04 Medical Decision Making [facility] Narrative Medical decision making narrative: Chest x-ray on my interpretation shows no acute findings and she is prescribed Zithromax and Tessalon. Treatment diagnosis and follow-up were discussed with the patient. She was offered a COVID test but does not want 1. Differential Diagnosis Differential Diagnosis: Pneumonia, upper respiratory infection Imaging Data Chest x-ray: My impression: No acute findings Discharge Plan Discharge Chief Complaint: Upper Respiratory Infection Clinical Impression: Upper respiratory infection Patient Disposition: Home, Self-Care Time of Disposition Decision: 13:41 Condition: Good Mode of Transportation: Private Vehicle Prescriptions / Home Meds: New azithromycin [Zithromax Z-Maikol] 250 mg tablet See Rx Instructions .ROUTE .COMPLEX Qty: 6 0RF Rx Instructions: For 250 mg dose pack: take 500 mg today (day 1), then 250 mg for 4 days (days 2-5) benzonatate 100 mg capsule 100 mg PO TID PRN (Reason: cough) Qty: 20 0RF No Action albuterol sulfate 90 mcg/actuation HFA aerosol inhaler 2 puff INHALATION Q4H PRN (Reason: shortness of breath or wheezing) benzonatate 100 mg capsule 100 mg PO Q6H PRN (Reason: cough) cefdinir 300 mg capsule 300 mg PO BID cyanocobalamin (vitamin B-12) 1,000 mcg tablet 1,000 mcg PO DAILY duloxetine 30 mg capsule,delayed release(DR/EC) 30 mg PO DAILY esomeprazole magnesium 40 mg capsule,delayed release(DR/EC) 40 mg PO BID Trulance 3 mg tablet 3 mg PO DAILY prednisone 20 mg tablet 60 mg PO DAILY quetiapine 50 mg tablet 50 mg PO BID Print Language: [place] Instructions: Upper Respiratory Infection (ED) Referrals: Charisse Hoffmann NP [Primary Care Provider] - 1 week
[2024-11-11] MEDS: ALBUTEROL SULFATE 2.5 MG/3 ML VIAL NEB IH (13:03)
[2024-11-11 13:04] VITALS: PULSE 81; O2SAT 97
== END 2024-11-11 14:03 | disposition home or self-care (01) ==
PROVIDERS: Emergency Provider Emergency Medicine; PCP Nurse Practitioner Family
DX: J06.9 Acute upper respiratory infection, unspecified (principal)
CPT/HCPCS: 71045; 94640; 99283